=== PATIENT | female | born 1940 | race Caucasian/White ===

== ENCOUNTER → 2018-07-01 | Outpatient (CLI) | payer MEDICARE, OTHER ==
[~2018-07-01] MED LIST: CATHETER FLUSH 10 ML SYR IV PRN; REGADENOSON 0.4 MG/5 ML SYR (LEXISCAN) IV ONE
[2018-07-01 09:11] VITALS: BP 164/69
[2018-07-01 09:12] VITALS: BP 161/75
--- NOTE | 2018-07-02 12:46 | STRESS TEST ---
DATE OF SERVICE: 07/01/2018 LEXISCAN MYOVIEW STRESS TEST Baseline heart rate is 52. Baseline blood pressure 164/69. Baseline EKG is sinus rhythm with nondiagnostic changes with T-wave inversion. In summary, the patient was injected with 7.84 mCi of technetium-99 Myoview and the resting images were obtained. Then, the patient received 0.4 mg of Lexiscan followed by 22.1 mCi of technetium-99 Myoview. Throughout the test, there were no EKG changes. The resting and stress images were reviewed and compared in the short axis, horizontal long axis, and vertical long axis views. Review of the images showed mild reversible ischemia involving the mid to apical inferior wall with diaphragmatic attenuation. SSS is 5, SDS 4, TID value 0.92. On the gated images, the left ventricle appeared to be normal size with normal contractility. Calculated ejection fraction 54%. CONCLUSION: 1. The patient tolerated Lexiscan well. 2. Diaphragmatic attenuation with mild ischemia involving the mid to apical inferior wall and inferior lateral wall and inferoseptum. 3. Normal left ventricular size with normal contractility. Calculated ejection fraction 54%. Job ID: [id number] DocumentID: [id number] Dictated Date: 07/02/2018 12:28:05 Order Clerk Date: 07/02/2018 12:45:55 Dictated By: SARAH PAK MD
== END ==
LOC: CARD 07:22
PROVIDERS: ATTEND Internal Medicine Cardiovascular Disease
DX: I10 Essential (primary) hypertension (principal); E78.2 Mixed hyperlipidemia; I63.9 Cerebral infarction, unspecified; Z82.49 Family history of ischemic heart disease and other diseases of the circulatory system
CPT/HCPCS: 78452; 93017; 93306

== ENCOUNTER 2018-07-10 08:47 | Day surgery (SDC) | payer MEDICARE ==
[2018-07-10] VITALS (11 sets, daily range): BP systolic 129–210; BP diastolic 64–89
[~2018-07-10] VITALS: Ht 160 cm; Wt 62.1 kg
[2018-07-10] MEDS ORDERED: NS IV 1000 ML 1,000 ML ONE (09:06)
[2018-07-10] MEDS ORDERED: HEParin (CATH LAB) 2,000 ML IV ONE (09:06)
[2018-07-10] MEDS ORDERED: NS IV 1000 ML 1,000 ML IV SCH ×2 (09:12→14:28)
[2018-07-10 09:44] LABS: HEMOGLOBIN 12.5 G/DL (11.5-16.0); MEAN PLATELET VOLUME 9.5 FL (7.4-10.4); RED CELL DISTRIBUTION WIDTH 13.7 % (10.0-14.5); WHITE BLOOD COUNT 6.4 10^3/uL (4.3-11.0)
[2018-07-10 10:06] LABS: PROTHROMBIN TIME PATIENT 12.9 SEC (12.2-14.7)
[2018-07-10 10:08] LABS: BILIRUBIN,TOTAL 0.4 MG/DL (0.1-1.0); CALCIUM 9.5 MG/DL (8.5-10.1); CREATININE SERUM 1.03 MG/DL (0.60-1.30); POTASSIUM 3.9 MMOL/L (3.6-5.0); TOTAL PROTEIN 6.4 GM/DL (6.4-8.2)
--- NOTE | 2018-07-10 10:16 | Diagnostic Imaging Report ---
INDICATION: Coronary artery disease FINDINGS: The heart size is within normal limits. There is no failure pattern, effusion or pneumothorax. There is background COPD noted. No free air beneath the diaphragms. IMPRESSION: COPD. No acute cardiopulmonary abnormality. Note is made of unhealed but nonacute appearing distal third right clavicular fracture, correlate with any recent injury or pain at that level. Dictated by: Dictated on workstation # [id number]
[2018-07-10] MEDS ORDERED: ATOR40TA70 PO (10:19)
[2018-07-10] MEDS ORDERED: LISI-552 PO (10:19)
[2018-07-10] MEDS ORDERED: MULT1TAB69 PO (10:19)
[2018-07-10] MEDS ORDERED: GUAI1TAB25 PO (10:19)
[2018-07-10] MEDS ORDERED: PANT40TA2 PO (10:19)
[2018-07-10] MEDS ORDERED: ASPI-983 PO (10:19)
[2018-07-10] MEDS ORDERED: BUPR300T43 PO (10:19)
[2018-07-10] MEDS ORDERED: FLEC100T PO (10:19)
[2018-07-10] MEDS ORDERED: ESTR0.5T3 PO (10:19)
[2018-07-10] MEDS ORDERED: CETI10TA20 PO (10:19)
[2018-07-10] MEDS ORDERED: LEVO100T7 PO (10:19)
[2018-07-10] MEDS ORDERED: NF-NACL1GT PO (10:19)
[2018-07-10] MEDS ORDERED: HYDR-3812 PO (10:34)
[2018-07-10] MEDS ORDERED: ZOLP5TAB7 PO (10:58)
[2018-07-10] MEDS ORDERED: CALC500T7 PO (11:02)
[2018-07-10] MEDS ORDERED: SIME80TA16 PO (11:02)
--- NOTE | 2018-07-10 11:04 | NUR ---
SPOKE WITH THE PATIENT AND FAMILY ABOUT MEDICATIONS. THEY DO NOT HAVE A SPECIFIC LIST OF MEDS BUT DID HAVE A PILL FUR STYLIST WITH AM AND PM MEDS IN IT. I IDENTIFIED THE PILLS IN THE BOX AND UPDATED THE MED LIST WITH THAT. IN ADDITION SHE STATES SHE TAKES ZOLPIDEM, HYDROCODONE, TUMS, AND GAS X NEEDED. THEY STATE THE HCTZ, AMLODIPINE, AND VIIBRYD HAVE BEEN DISCONTINUED. SHE ALSO WAS PRESCRIBED CALCITONIN NASAL SPRAY BUT STATES SHE DOES NOT USE IT.
[2018-07-10] MEDS ORDERED: ENALAPRILAT 2.5 MG/2 ML (VASOTEC) VIAL IV ONE (13:08)
--- NOTE | 2018-07-10 13:23 | Cardiac Procedure Note-CS/ASA ---
Pre-Procedure Note Pre-Op Procedure Note H&P Reviewed The H&P was reviewed, patient examined and no changes noted. Date H&P Reviewed: Jul 10, 2018 Time H&P Reviewed: 13:23 Conscious Sedation Pre-Proced Time 13:23 ASA Score 3 For ASA 3 and 4: Consider anesthesia and medical clearance. Also, for patients with a history of failed moderate sedation consider anesthesia. Airway Lungs Heart ASA score ASA 1: a normal healthy patient ASA 2: a patient with a mild systemic disease (mid diabetes, controlled hypertension, obesity x ASA 3: a patient with a severe systemic disease that limits activity (angina , COPD, prior Myocardial infarction) ASA 4: a patient with an incapacitating disease that is a constant threat to life (CHF, renal failure) ASA 5: a moribund patient not expected to survive 24 hrs. (ruptured aneurysm) ASA 6: a declared brain- patient whose organs are being harvested. For emergent operations, add the letter E after the classification Mallampati Classification Grade 3 Sedation Plan Analgesia, Amnesia, Plan communicated to team members, Discussed options with patient/fam, Discussed risks with patient/fam The patient is an appropriate candidate to undergo the planned procedure, sedation, and anesthesia. The patient immediately re-assessed prior to indication. SARAH PAK MD Jul 10, 2018 13:23
[2018-07-10] MEDS ORDERED: fentaNYL INJECTION 100 MCG/2 ML AMP ONE (13:36)
[2018-07-10] MEDS ORDERED: MIDAZOLAM 5 MG/5 ML (VERSED) VIAL ONE (13:36)
[2018-07-10] MEDS ORDERED: NITRO DRIP 25000 MCG/D5W 250 ML IV ONE (14:12)
[2018-07-10] MEDS ORDERED: PATIENT MAY USE OWN MEDS, ALL PO SCH (14:30)
[2018-07-10] MEDS ORDERED: cloNIDine 0.1 MG (CATAPRES) TAB PO ONE (14:30)
--- NOTE | 2018-07-10 14:36 | Cardiac Cath Report ---
Cardiac Cath Report Physician (s)/Motor Mechanic (s) Physician SARAH PAK MD Pre-Procedure Diagnosis Pre-Procedure Diagnosis: coronary artery disease, severe hypertension Post-Procedure Note Procedure Start Date: Jul 10, 2018 Name of Procedure: Left heart catheterization Aortic arch angiogram Selective bilateral renal angiogram Findings/Procedure Note PROCEDURE NOTE: 77 years old lady with history of malignant hypertension, had abnormal stress test with ischemia at the inferior wall, was scheduled for cardiac catheterization, noted to have severe hypertension requiring multiple IV and intra-arterial medication during the procedure, I decided to evaluate her renal artery and aortic arch during the procedure. After explaining the procedure to the patient, all pros and cons were explained , all questions were answered. The patient signed the consent and then she was placed on the cardiac catheterization laboratory. Groin was prepped SL fashion local anesthesia was used. Sheath placed in the right femoral artery. Lashon right and left catheter were used to access the coronary system. Pigtail was used to access the left ventricular cavity. Left ventriculogram was done Aortic arch angiogram was done Lashon right catheter was used to access selectively the right and left renal artery and selective renal angiogram was done, patient was given intra-arterial nitroglycerin, IV enalapril and oral clonidine At the end of the procedure the sheath was removed. Closure device was used. FINDINGS: Hemodynamics LV 186/26, end-diastolic pressure of 26 Aorta 184/64 mean of 105 ANATOMY: Left Main is free of obstructive disease Left Anterior Descending has mild disease nonobstructive disease Left Circumflex is codominant with mild disease distally nonobstructive disease Right Coronory Artery is codominant with occluded right PDA distally, fairly small artery not amendable to intervention LV Gram was not done, pressure was measured Aorta evaluation done with aortic arch and gram which showed severe hypertensive changes in the aorta, calcification in the aortic arch, origin of the innominate artery, left carotid and left subclavian artery showed atherosclerotic plaque with nonobstructive disease, no dissection or aneurysm Selective right renal angiogram showed no significant obstructive disease Selective left renal angiogram showed no obstructive disease CONCLUSION: 1. Occluded distal right PDA that is very small artery, not amendable to intervention 2. Mild coronary artery disease, nonobstructive disease otherwise, codominant circumflex artery 3. Severe hypertensive changes in the aortic arch and great vessels of the neck 4. Normal bilateral renal arteries DISCUSSION AND RECOMMENDATION: continue to maximize medical therapy no intervention is needed Anesthesia Type: Conscious Sedation Estimated blood loss (mL): 15 ml Contrast Amount: 63 ml Total Radiation Dose: 414 mGy Post-Procedure Diagnosis Post-operative diagnosis: Coronary artery disease Malignant hypertension Hyperlipidemia Chest SARAH PAK MD Jul 10, 2018 14:35
[2018-07-10] MEDS ORDERED: AMLO5TAB9 PO (14:39)
--- NOTE | 2018-07-10 14:40 | Discharge Inst-Post CATH ---
Discharge Inst-CATH/EP Post Cardiac Cath/EP D/C Inst Follow Up/Plan Appointment with Dr. Barros's office in 2 weeks CARDIAC CATH DISCHARGE INSTRUCTIONS *Hold Metformin for 48 hours post heart cath. ACTIVITY * Go Home directly and rest. * Limit activity of the leg (or wrist if it was used) for 7 days including aerobics, swimming, jogging, bicycling, etc. * Restrict stair-climbing for 7 days if possible, if not, climb up with your non -cath leg, then bring together on the same step. * Avoid lifting, pushing, pulling or excessive movement of the affected extremity for 7 days. * Customary sexual activity may be resumed after 2 days-use caution not to use a position that strains or causes pain to the affected extremity. * No driving for 24 hours. * NO SMOKING. * Avoid straining for bowel movements for 7 days. * Gentle walking on level ground is allowed. * Returning to work will depend on the type of procedure and the results. Your doctor will discuss this with you. CALL YOUR DOCTOR FOR ANY OF THE FOLLOWING: *If bleeding from the puncture site occurs- Apply gentle pressure to site with clean cloth and call your doctor or EMS. * If a knot or lump forms under the skin, increases in size, or causes pain. * If bruising appears to be worsening or moving further down your leg instead of disappearing. * Temperature above 101 F. CARE OF YOUR GROIN INCISION; * Bruising or purple discoloration of the skin near the puncture site is common. * You may shower only, no bathtub bathing for 5 days. Be careful to avoid slipping as your leg may feel stiff. * If a closure device was used on your femoral artery, please see the attached guide regarding care of the device and your leg. * Leave the dressing on, until removed by office staff. CARE OF YOUR WRIST INCISION; * Bruising or purple discoloration of the skin near the puncture site is common. * You may shower. * DO NOT submerge wrist. * Leave dressing on, until removed by office staff.. SARAH BARROS MD Jul 10, 2018 14:39
[2018-07-10] MEDS ORDERED: amLODIPine 5 MG (NORVASC) TAB PO NR (15:25)
[2018-07-10] MEDS ORDERED: lisINopril 20 MG (PRINIVIL) TABLET PO NR (15:25)
--- NOTE | 2018-07-10 15:45 | NUR ---
TERRELL SKIN ASSESSMENT BASED ON POST HEART CATH/POST OP ORDERS. PATIENT IS ON BEDREST FOR 4 HOURS POST OP.
== END 2018-07-10 19:20 | disposition home or self-care (01) ==
LOC: CATH 08:47
PROVIDERS: ATTEND Internal Medicine Cardiovascular Disease
DX: I25.10 Atherosclerotic heart disease of native coronary artery without angina pectoris (principal); I10 Essential (primary) hypertension; E78.2 Mixed hyperlipidemia; Z86.73 Personal history of transient ischemic attack (TIA), and cerebral infarction without residual deficits; F32.9 Major depressive disorder, single episode, unspecified; E03.9 Hypothyroidism, unspecified; Z79.82 Long term (current) use of aspirin; Z79.899 Other long term (current) drug therapy; I65.23 Occlusion and stenosis of bilateral carotid arteries; J45.909 Unspecified asthma, uncomplicated; Z80.9 Family history of malignant neoplasm, unspecified
CPT/HCPCS: 36221; 36252; 36415; 71045; 80053; 80061; 85027; 85610; 85730; 87081; 93458

== ENCOUNTER 2018-08-09 08:33 | Outpatient (RCR) | payer MEDICARE ==
[~2018-08-09 08:33] MED LIST changes: +AMLO5TAB9 PO; +ASPI-983 PO; +ATOR40TA70 PO; +BUPR300T43 PO; +CALC500T7 PO; -CATHETER FLUSH 10 ML SYR IV PRN; +CETI10TA20 PO; +ESTR0.5T3 PO; +FLEC100T PO; +GUAI1TAB25 PO; +HYDR-3812 PO; +LEVO100T7 PO; +LISI-552 PO; +MULT1TAB69 PO; +NF-NACL1GT PO; +PANT40TA2 PO; -REGADENOSON 0.4 MG/5 ML SYR (LEXISCAN) IV ONE; +SIME80TA16 PO; +ZOLP5TAB7 PO
== END 2018-11-07 | disposition home or self-care (01) ==
LOC: CARD 08:33
PROVIDERS: ATTEND Internal Medicine Cardiovascular Disease
DX: I25.10 Atherosclerotic heart disease of native coronary artery without angina pectoris (principal); I10 Essential (primary) hypertension; E78.2 Mixed hyperlipidemia; R07.9 Chest pain, unspecified; I63.9 Cerebral infarction, unspecified
CPT/HCPCS: 93225; 93226

== ENCOUNTER → 2018-09-04 | Day surgery (SDC) | payer MEDICARE ==
[~2018-09-04] VITALS: Ht 160 cm; Wt 62.1 kg
[~2018-09-04] MED LIST changes: +LIDOCAINE 1% INJ 20 ML 20 ML VIAL ONE
[2018-09-04 08:44] VITALS: BP 172/82
--- NOTE | 2018-09-04 10:03 | Implantation of Loop Monitor ---
Implant of Loop Monitior IMPLANTATION OF LOOP MONITOR REPORT DATE OF PROCEDURE: 09/04/18 PREOP DIAGNOSIS: paroxysmal atrial fibrillation POSTOP DIAGNOSIS: paroxysmal atrial fibrillation PROCEDURE DETAILS: The patient is a 78 female with history of paroxysmal atrial fibrillation requiring long-term surveillance. Therefore implantable loop recorder was discussed and agreed with the patient. Informed consent was taken. All risks and complications were discussed at length. The patient was draped and prepped in the usual sterile fashion. Local anesthesia was lidocaine, which was given in the substernal area close to the 4th intercostal space. Loop monitor [email or web address] serial # [id number] was implanted according to the protocol. Steri- Strips were placed at the end of the procedure. There were no complications and the patient tolerated the procedure well. The device was interrogated with a voltage of. ANESTHESIA: Local anesthesia with lidocaine. COMPLICATIONS: None CONTRAST/FLUOROSCOPY: None CONCLUSION: Successful loop recorder implantation with no complication FINAL DIAGNOSIS: Paroxysmal atrial fibrillation Palpitation SARAH PAK MD Sep 04, 2018 10:03
== END | disposition home or self-care (01) ==
LOC: CATH 08:29
PROVIDERS: ATTEND Internal Medicine Cardiovascular Disease
DX: I48.0 Paroxysmal atrial fibrillation (principal); E78.2 Mixed hyperlipidemia; Z86.73 Personal history of transient ischemic attack (TIA), and cerebral infarction without residual deficits; Z82.49 Family history of ischemic heart disease and other diseases of the circulatory system; F32.9 Major depressive disorder, single episode, unspecified; E03.9 Hypothyroidism, unspecified; I08.3 Combined rheumatic disorders of mitral, aortic and tricuspid valves; I65.23 Occlusion and stenosis of bilateral carotid arteries; J45.909 Unspecified asthma, uncomplicated; I25.10 Atherosclerotic heart disease of native coronary artery without angina pectoris; Z79.82 Long term (current) use of aspirin; Z79.899 Other long term (current) drug therapy; Z88.0 Allergy status to penicillin; Z88.5 Allergy status to narcotic agent
CPT/HCPCS: 33285

== ENCOUNTER → 2019-07-04 | Outpatient (CLI) | payer MEDICARE ==
[~2019-07-04] MED LIST changes: -LIDOCAINE 1% INJ 20 ML 20 ML VIAL ONE
== END ==
LOC: CARD 10:38
PROVIDERS: ATTEND Internal Medicine Cardiovascular Disease
DX: I10 Essential (primary) hypertension (principal); E78.2 Mixed hyperlipidemia; I25.10 Atherosclerotic heart disease of native coronary artery without angina pectoris; I48.0 Paroxysmal atrial fibrillation; I08.0 Rheumatic disorders of both mitral and aortic valves
CPT/HCPCS: 93306

== ENCOUNTER 2019-09-25 21:22 | Observation (INO) | payer MEDICARE ==
[~2019-09-25] VITALS: Ht 170.2 cm; Wt 70.2 kg
[~2019-09-25 21:22] MED LIST changes: +ACHD5005 PO; -CETI10TA20 PO; +CETI10TA21 PO; -HYDR-3812 PO
--- NOTE | 2019-09-25 21:31 | NUR ---
RECEIVED REPORT FROM LIAM STILES FROM [facility].
--- NOTE | 2019-09-25 22:41 | NUR ---
NEIL ARTHUR admitted to room CU8-1, with an admitting diagnosis of CHEST PAIN, on 09/25/19 from via [facility], accompanied by EMS STAFF. NEIL LEON introduced to surroundings, call light, bed controls, phone, TV, temperature control, lights, meal times, smoking policy, visitor policy, side rail policy, bathrooms and showers. Patient Rights given to patient in the handbook.NEIL LEON verbalizes understanding that [facility] is not responsible for the loss or damage to any personal effects or valuables that are kept in the patients possession during their hospitalization. Patient informed about the Rapid Response Team and its purpose.
--- OUTSIDE RECORDS SUMMARY | 2019-09-25 22:59 | XMS REPORT | Continuity of Care Document ---
Author Organization Unknown Address Unknown Phone Unavailable Allergies Active Description Code Type Severity Reaction Onset Reported/Identified Relationship to Patient Clinical Status Yes No Allergy Information Available [id number] Drug Allergy Unknown N/A 019 Yes morphine [id number] Drug Allergy Severe N/A 07/10/2018 Yes Penicillins [id number] Drug Aller gy Severe N/A 07/10/2018 Medications There is no data. Problems Date Dx Coded Attending Type Code Diagnosis Diagnosed By 07/02/2018 SARAH PAK MD, Ot E78. 2 MIXED HYPERLIPIDEMIA 07/02/2018 SARAH PAK MD Ot I10 ESSENTIAL (PRIMARY) HYPERTENSION 07/02/2018 SARAH PAK MD Ot I63. 9 CEREBRAL INFARCTION, UNSPECIFIED 07/02/2018 SARAH PAK MD Ot Z82. 49 FAMILY HX OF ISCHEM HEART DIS AND OTH DI 07/07/2018 SARAH PAK MD Ot E78. 2 MIXED HYPERLIPIDEMIA 07/07/2018 SARAH PAK MD Ot I10 ESSENTIAL (PRIMARY) HYPERTENSION 07/07/2018 SARAH PAK MD Ot I63. 9 CEREBRAL INFARCTION, UNSPECIFIED 07/07/2018 SARAH PAK MD Ot Z82. 49 FAMILY HX OF ISCHEM HEART DIS AND OTH DI 07/10/2018 SARAH PAK MD Ot E03. 9 HYPOTHYROIDISM, UNSPECIFIED 07/10/2018 SARAH PAK MD Ot E78. 2 MIXED HYPERLIPIDEMIA 07/10/2018 ASRAH PAK MD Ot F32. 9 MAJOR DEPRESSIVE DISORDER, SINGLE EPISOD 07/10/2018 SARAH PAK MD Ot I10 ESSENTIAL (PRIMARY) HYPERTENSION 07/10/2018 SARAH PAK MD Ot I25. 10 ATHSCL HEART DISEASE OF [place] CORONARY 07/10/2018 SARAH PAK MD Ot I65. 23 OCCLUSION AND STENOSIS OF BILATERAL [place] 07/10/2018 SARAH PAK MD Ot J45.909 UNSPECIFIED ASTHMA, UNCOMPLICATED 07/10/2018 SARAH PAK MD Ot Z79. 82 CLAMSHELL OPERATOR (CURRENT) USE OF ASPIRIN 07/10/2018 SARAH PAK MD Ot Z79.899 OTHER CLAMSHELL OPERATOR (CURRENT) DRUG THERAPY 07/10/2018 SARAH PAK MD Ot Z80. 9 FAMILY HISTORY OF MALIGNANT NEOPLASM, UN 07/10/2018 SARAH PAK MD Ot Z86. 73 PRSNL HX OF TIA (TIA), AND CEREB INFRC W 07/11/2018 SARAH PAK MD Ot E03. 9 HYPOTHYROIDISM, UNSPECIFIED 07/11/2018 SARAH PAK MD Ot E78. 2 MIXED HYPERLIPIDEMIA 07/11/2018 SARAH PAK MD Ot F32. 9 MAJOR DEPRESSIVE DISORDER, SINGLE EPISOD 07/11/2018 SARAH PAK MD Ot I10 ESSENTIAL (PRIMARY) HYPERTENSION 07/11/2018 SARAH PAK MD Ot I25. 10 ATHSCL HEART DISEASE OF [place] CORONARY 07/11/2018 SARAH PAK MD Ot I65. 23 OCCLUSION AND STENOSIS OF BILATERAL [place] 07/11/2018 SARAH PAK MD Ot J45.909 UNSPECIFIED ASTHMA, UNCOMPLICATED 07/11/2018 SARAH PAK MD Ot Z79. 82 CLAMSHELL OPERATOR (CURRENT) USE OF ASPIRIN 07/11/2018 SARAH PAK MD Ot Z79.899 OTHER CLAMSHELL OPERATOR (CURRENT) DRUG THERAPY 07/11/2018 SARAH PAK MD Ot Z80. 9 FAMILY HISTORY OF MALIGNANT NEOPLASM, UN 07/11/2018 SARAH PAK MD Ot Z86. 73 PRSNL HX OF TIA (TIA), AND CEREB INFRC W 09/10/2018 SARAH PAK MD Ot I48. 0 PAROXYSMAL ATRIAL FIBRILLATION 09/10/2018 SARAH PAK MD Ot I48. 0 PAROXYSMAL ATRIAL FIBRILLATION 09/10/2018 SARAH PAK MD Ot E03. 9 HYPOTHYROIDISM, UNSPECIFIED 09/10/2018 SARAH PAK MD Ot E78. 2 MIXED HYPERLIPIDEMIA 09/10/2018 SARAH PAK MD Ot F32. 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 10 ATHSCL HEART DISEASE OF [place] CORONARY 09/10/2018 SARAH PAK MD Ot I48. 0 PAROXYSMAL ATRIAL FIBRILLATION 09/10/2018 SARAH PAK MD Ot I65. 23 OCCLUSION AND STENOSIS OF BILATERAL [place] 09/10/2018 SARAH PAK MD Ot J45.909 UNSPECIFIED ASTHMA, UNCOMPLICATED 09/10/2018 SARAH PAK MD Ot Z79. 82 CLAMSHELL OPERATOR (CURRENT) USE OF ASPIRIN 09/10/2018 SARAH PAK MD Ot Z79.899 OTHER RETIREMENT (CURRENT) DRUG THERAPY 09/10/2018 SARAH PAK MD Ot Z82. 49 FAMILY HX OF ISCHEM HEART DIS AND OTH DI 09/10/2018 SARAH PAK MD Ot Z86. 73 PRSNL HX OF TIA (TIA), AND CEREB INFRC W 09/10/2018 SARAH PAK MD Ot Z88. 0 ALLERGY STATUS TO PENICILLIN 09/10/2018 SARAH PAK MD Ot Z88. 5 ALLERGY STATUS TO NARCOTIC AGENT STATUS 09/24/2018 SARAH PAK MD Ot E03. 9 HYPOTHYROIDISM, UNSPECIFIED 09/24/2018 SARAH PAK MD Ot E78. 2 MIXED HYPERLIPIDEMIA 09/24/2018 SARAH PAK MD Ot F32. 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 10 ATHSCL HEART DISEASE OF [place] CORONARY 09/24/2018 SARAH PAK MD Ot I48. 0 PAROXYSMAL ATRIAL FIBRILLATION 09/24/2018 SARAH PAK MD Ot I65. 23 OCCLUSION AND STENOSIS OF BILATERAL [place] 09/24/2018 SARAH PAK MD Ot J45.909 UNSPECIFIED ASTHMA, UNCOMPLICATED 09/24/2018 SARAH PAK MD Ot Z79. 82 RETIREMENT (CURRENT) USE OF ASPIRIN 09/24/2018 SARAH PAK MD Ot Z79.899 OTHER RETIREMENT (CURRENT) DRUG THERAPY 09/24/2018 SARAH PAK MD Ot Z82. 49 FAMILY HX OF ISCHEM HEART DIS AND OTH DI 09/24/2018 SARAH PAK MD Ot Z86. 73 PRSNL HX OF TIA (TIA), AND CEREB INFRC W 09/24/2018 SARAH PAK MD Ot Z88. 0 ALLERGY STATUS TO PENICILLIN 09/24/2018 SARAH PAK MD Ot Z88. 5 ALLERGY STATUS TO NARCOTIC AGENT STATUS 11/07/2018 SARAH PAK MD Ot E78. 2 MIXED HYPERLIPIDEMIA 11/07/2018 SARAH PAK MD Ot I10 ESSENTIAL (PRIMARY) HYPERTENSION 11/07/2018 SARAH PAK MD Ot I25. 10 ATHSCL HEART DISEASE OF [place] CORONARY 11/07/2018 SARAH PAK MD Ot I63. 9 CEREBRAL INFARCTION, UNSPECIFIED 11/07/2018 SARAH PAK MD Ot R07. 9 CHEST PAIN, UNSPECIFIED 11/13/2018 SARAH PAK MD Ot E78. 2 MIXED HYPERLIPIDEMIA 11/13/2018 SARAH PAK MD Ot I10 ESSENTIAL (PRIMARY) HYPERTENSION 11/13/2018 SARAH PAK MD Ot I25. 10 ATHSCL HEART DISEASE OF [place] CORONARY 11/13/2018 SARAH PAK MD Ot I63. 9 CEREBRAL INFARCTION, UNSPECIFIED 11/13/2018 SARAH PAK MD Ot R07. 9 CHEST PAIN, UNSPECIFIED 06/30/2019 SARAH PAK MD Ot E78. 2 MIXED HYPERLIPIDEMIA 06/30/2019 SARAH PAK MD Ot I10 ESSENTIAL (PRIMARY) HYPERTENSION 06/30/2019 SARAH PAK MD Ot I63. 9 CEREBRAL INFARCTION, UNSPECIFIED 06/30/2019 SARAH PAK MD Ot Z82. 49 FAMILY HX OF ISCHEM HEART DIS AND OTH DI 06/30/2019 SARAH PAK MD Ot E03. 9 HYPOTHYROIDISM, UNSPECIFIED 06/30/2019 SARAH PAK MD Ot E78. 2 MIXED HYPERLIPIDEMIA 06/30/2019 SARAH PAK MD Ot F32. 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 10 ATHSCL HEART DISEASE OF [place] CORONARY 06/30/2019 SARAH PAK MD Ot I48. 0 PAROXYSMAL ATRIAL FIBRILLATION 06/30/2019 SARAH PAK MD Ot I65. 23 OCCLUSION AND STENOSIS OF BILATERAL [place] 06/30/2019 SARAH PAK MD Ot J45.909 UNSPECIFIED ASTHMA, UNCOMPLICATED 06/30/2019 SARAH PAK MD Ot Z79. 82 CLAMSHELL OPERATOR (CURRENT) USE OF ASPIRIN 06/30/2019 SARAH PAK MD Ot Z79.899 OTHER CLAMSHELL OPERATOR (CURRENT) DRUG THERAPY 06/30/2019 SARAH PAK MD Ot Z82. 49 FAMILY HX OF ISCHEM HEART DIS AND OTH DI 06/30/2019 SARAH PAK MD Ot Z86. 73 PRSNL HX OF TIA (TIA), AND CEREB INFRC W 06/30/2019 SARAH PAK MD Ot Z88. 0 ALLERGY STATUS TO PENICILLIN 06/30/2019 SARAH PAK MD Ot Z88. 5 ALLERGY STATUS TO NARCOTIC AGENT STATUS 06/30/2019 SARAH PAK MD Ot E78. 2 MIXED HYPERLIPIDEMIA 06/30/2019 SARAH PAK MD Ot I10 ESSENTIAL (PRIMARY) HYPERTENSION 06/30/2019 SARAH PAK MD Ot I25. 10 ATHSCL HEART DISEASE OF [place] CORONARY 06/30/2019 SARAH PAK MD Ot I63. 9 CEREBRAL INFARCTION, UNSPECIFIED 06/30/2019 SARAH PAK MD Ot R07. 9 CHEST PAIN, UNSPECIFIED 07/08/2019 SARAH PAK MD Ot E78. 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 10 ATHSCL HEART DISEASE OF [place] CORONARY 07/08/2019 SARAH PAK MD Ot I48. 0 PAROXYSMAL ATRIAL FIBRILLATION 07/29/2019 SARAH PAK MD Ot E78. 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 10 ATHSCL HEART DISEASE OF [place] CORONARY 07/29/2019 SARAH PAK MD, Ot I48. 0 PAROXYSMAL ATRIAL FIBRILLATION Procedures There is no data. Results Test Result Range Automated blood complete blood count (he mogram) panel - 07/10/18 09:30 Blood leukocytes automated count (number/volume) 6.4 10*3/uL 4.3-11.0 Blood erythrocytes automated count (number/volume) 4.50 10*6/uL 4.35-5.85 Venous blood hemoglobin measurement (mass/volume) 12.5 g/dL 11.5-16.0 Blood hematocrit (volume fraction) 38 % 35-52 Automated erythrocyte mean corpuscular volume 85 [ foz_us] 80-99 Automated erythrocyte mean corpuscular h emoglobin (mass per erythrocyte) 28 pg 25-34 Automated erythrocyte mean corpuscular h emoglobin concentration measurement (mass/volume) 33 g/dL 32-36 Automated erythrocyte distribution width ratio 13. 7 % 10.0- 14.5 Automated blood platelet count (count/volume) 283 10*3/uL 130-400 Automated blood platelet mean volume measurement 9.5 [foz_us] 7.4-10.4 PT panel in platelet poor plasma by coag ulation assay - 07/10/18 09:30 Prothrombin time (PT) in platelet poor plasma by coagu lation assay 12.9 s 12.2-14.7 INR in platelet poor plasma or blood by coagulation as say 1.0 0.8-1.4 Activated partial thromboplastin time (a PTT) in platelet poor plasma bycoagulation assay - 07/10/18 09:30 Activated partial thromboplastin time (a PTT) in platelet poor plasma bycoagulation assay 34 s 24-35 Comprehensive metabolic panel - 07/10/18 09:30 Serum or plasma sodium measurement (moles/volume) 138 mmol/L 135-145 Serum or plasma potassium measurement (moles/volume) 3.9 mmol/L 3.6-5.0 Serum or plasma chloride measurement (moles/volume) 103 mmol/L 98-107 Carbon dioxide 27 mmol/L 21-32 Serum or plasma anion gap determination (moles/volume) 8 mmol/L 5-14 Serum or plasma urea nitrogen measurement (mass/volume ) 16 mg/dL 7-18 Serum or plasma creatinine measurement (mass/volume) 1.03 mg/dL 0.60-1.30 Serum or plasma urea nitrogen/creatinine mass ratio 16 NRG Serum or plasma creatinine measurement w ith calculation of estimated glomerular filtration rate 52 NRG Serum or plasma glucose measurement (mass/volume) 78 mg/dL 70-105 Serum or plasma calcium measurement (mass/volume) 9.5 mg/dL 8.5-10.1 Serum or plasma total bilirubin measurement (mass/volu me) 0.4 mg/dL 0.1-1.0 Serum or plasma alkaline phosphatase chayito surement (enzymatic activity/volume) 85 U/L 40-136 Serum or plasma aspartate aminotransfera se measurement (enzymatic activity/volume) 22 U/L 5-34 Serum or plasma alanine aminotransferase measurement (enzymatic activity/volume) 14 U/L 0-55 Serum or plasma protein measurement (mass/volume) 6.4 g/dL 6.4-8.2 Serum or plasma albumin measurement (mass/volume) 4.0 g/dL 3.2-4.5 CALCIUM CORRECTED 9.5 mg/dL 8.5-10.1 Lipid 1996 panel - 07/10/18 09:30 Serum or plasma triglyceride measurement (mass/volume) 70 mg/dL <150 Serum or plasma cholesterol measurement (mass/volume) 180 mg/dL < 200 Serum or plasma cholesterol in HDL measurement (mass/v olume) 86 mg/dL 40-60 Cholesterol in LDL [mass/volume] in serum or plasma by direct assay 73 mg/dL 1-129 Serum or plasma cholesterol in VLDL measurement (mass/ volume) 14 mg/dL 5-40 Methicillin resistant Staphylococcus aur eus (MRSA) screening culture - 07/10/18 09:30 Methicillin resistant Staphylococcus aureus (MRSA) scr eening culture NEG NRG Encounters ACCT No. Visit Date/Time Discharge Status Pt. Type Provider Facility Loc./Unit Complaint [id number] 07/04/2019 10:38:00 020 23:59:59 CLS Outpatient SARAH PAK MD Via [facility] CARD HTN,HYPERLIPIDEMIA,CAD [id number] 11/08/2018 00:11:00 019 23:59:59 CLS Preadmit SARAH PAK MD [facility] CARD CVA, CHEST PAIN, HTN [id number] 08/09/2018 08:33:00 00:01:00 DIS Outpatient SARAH PAK MD [facility] CARD CVA, CHEST PAIN, HTN [id number] 09/04/2018 08:29:00 23:59:59 CLS Outpatient SARAH PAK MD [facility] PAT [id number] 07/10/2018 08:47:00 19:20:00 DIS Outpatient SARAH PAK MD [facility] ABN STRESS TEST [id number] 07/01/2018 07:22:00 23:59:59 CLS Outpatient SARAH PKA MD [facility] HTN
[2019-09-25 23:00] VITALS: BP 180/94
[2019-09-25 23:15] VITALS: BP 171/80
[2019-09-25 23:30] VITALS: BP 167/82
[2019-09-25] MEDS ORDERED: NITROGLYCERIN 0.4 MG SL TABS BTL 25'S SL PRN (23:30)
[2019-09-25] MEDS ORDERED: PATIENT MAY USE OWN MEDS, ALL PO SCH (23:30)
[2019-09-25] MEDS: NS IV 1000 ML 1,000 ML IV SCH (23:35)
[2019-09-25 23:45] VITALS: BP 149/72
[2019-09-26] VITALS (17 sets, daily range): BP systolic 112–195; BP diastolic 57–90
[2019-09-26 03:32] LABS: BASOPHILS % (AUTO) 0 % (0-10); EOSINOPHILS # (AUTO) 0.2 10^3/uL (0.0-0.3); EOSINOPHILS % (AUTO) 2 % (0-10); HEMATOCRIT 37 % (35-52); HEMOGLOBIN 11.9 G/DL (11.5-16.0); LYMPHOCYTES # (AUTO) 2.3 X 10^3 (1.0-4.0); LYMPHOCYTES % (AUTO) 33 % (12-44); MEAN CORPUSCULAR HEMOGLOBIN 28 PG (25-34); MEAN CORPUSCULAR HGB CONC 32 G/DL (32-36); MEAN CORPUSCULAR VOLUME 86 FL (80-99); MEAN PLATELET VOLUME 10.8 FL (7.4-10.4); MONOCYTES # (AUTO) 0.8 X 10^3 (0.0-1.0); MONOCYTES % (AUTO) 12 % (0-12); NEUTROPHILS # (AUTO) 3.7 X 10^3 (1.8-7.8); NEUTROPHILS % (AUTO) 53 % (42-75); PLATELET COUNT 201 10^3/uL (130-400); RED CELL DISTRIBUTION WIDTH 13.4 % (10.0-14.5)
[2019-09-26 04:09] LABS: INR 1.1 (0.8-1.4); PROTHROMBIN TIME PATIENT 14.5 SEC (12.2-14.7)
--- NOTE | 2019-09-26 08:54 | History & Physical-Hospitalist ---
History of Present Illness HPI/Chief Complaint Pt is an 79yoCF with a PMH of CAD, a-fib, HTn, hypothyroidism who presented to the ER duet chest pressure. She states she has mild chest pressure regularly that goes away with rest and is worse with exertion. She states last night she developed worsening chest pressure and sharp central chest pain. This was associated with SOB, nausea, and diaphoresis. It did not radiate any where. She states she felt similar when she had an [place] in the past. She denies any fever, chills, or cough. Her pain improved with rest and she has no pain currently. Troponin at outside facility was 0.066 so she was transferred her for cardiology evaluation. Troponin this morning was 0.038. A third troponin is pending. Her EKG revealed a LBBB which per their old records is not new. She states that yesterday she noticed her heart rate was 110 as well. Source: patient Date Seen 09/26/19 Time Seen by a Provider: 08:15 Attending Physician Eloise Bhat MD PCP No,Local Physician Referring Physician Date of Admission Sep 25, 2019 at 22:41 Home Medications & Allergies Home Medications Reviewed patient Home Medication Reconciliation performed by pharmacy medication reconciliations radio technician and/or nursing. Patients Allergies have been reviewed. Allergies Allergies Coded Allergies Penicillins (Verified Allergy, Severe, 07/10/18) SEIZURE morphine (Verified Allergy, Severe, 07/10/18) SEIZURE Past Izjwlwc-Ehglpp-Qccndj Hx Past Med/Social Hx: Reviewed Nursing Past Med/Soc Hx Patient Social History Marrital Status: Employed/Student: retired Alcohol Use: Denies Use Recreational Drug Use: No Smoking Status: Never a Smoker Type Used: Cigarettes Physical Abuse Screen: No Sexual Abuse: No Recent Foreign Travel: No Contact w/other who traveled: No Recent Hopitalizations: No (STROKE) Recent Infectious Disease Expo: No Immunizations Up To Date Pediatric: No Date of Pneumonia Vaccine: Sep 25, 2014 Date of Influenza Vaccine: Feb 02, 2018 Seasonal Allergies Seasonal Allergies: No Past Medical History Surgeries: Appendectomy, Gallbladder, Hysterectomy, Oophorectomy Currently Using CPAP: No Currently Using BIPAP: No Cardiac: Atrial Fibrillation, Coronary Artery Disease, Heart Attack, Heart Murmur, High Cholesterol, Hypertension, Valvular Heart Disease Neurological: Seizure Disorder, Stroke Sexually Transmitted Disease: No HIV/AIDS: No Female Reproductive Disorders: Denies Hysterectomy Endocrine: Hypothyroidsim Are Your Blood Sugars Over 250: No History of Blood Disorders: No Family History Reviewed Nursing Family Hx Review of Systems Constitutional: No chills; diaphoresis; No fever Respiratory: dyspnea on exertion, short of breath Cardiovascular: see HPI, chest pain; No edema; Hx of Intervention; No syncope Gastrointestinal: No abdominal pain; nausea; No vomiting Genitourinary: no symptoms reported Musculoskeletal: no symptoms reported Skin: no symptoms reported Psychiatric/Neurological: No Symptoms Reported Physical Exam Physical Exam Vital Signs Vital Signs - First Documented 09/25/19 09/25/19 09/25/19 22:41 22:48 23:00 Temp 37.3 Pulse 83 Resp 15 B/P (MAP) 180/94 (122) Pulse Ox 99 O2 Delivery Room Air Capillary Refill : Height, Weight, BMI Height: 5'3.00" Weight: 137lbs. 0.0oz. 62.690664tk; 24.23 BMI Method: General Appearance: No Apparent Distress, WD/WN HEENT: TMs Normal, Moist Mucous Membranes; No Scleral Icterus (L), No Scleral Icterus (R) Respiratory: Lungs Clear, No Respiratory Distress Cardiovascular: Bradycardia Gastrointestinal: Normal Bowel Sounds, Non Tender, Soft Results Results/Procedures Labs Patient resulted labs reviewed. 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 Was originally going to sign out AMA but has agreed to stay for cath. Clinical Quality Measures DVT/VTE Risk/Contraindication: Risk Factor Score Per Nursin RFS Level Per Nursing on Admit: 2=Moderate EMMA CENTENO MD Sep 26, 2019 08:54
[2019-09-26] MEDS: NS IV 1000 ML 1,000 ML IV SCH ×2 (10:11→13:00)
--- NOTE | 2019-09-26 10:58 | NUR ---
CM/SS: Visited with pt as to needing diabetic supplies as per consult Plan: Pt will return home with no identified services needed Summary: Pt reports she was having pressure, not pain in her chest prior to her being admitted to the hospital. Pt reports that she is not diabetic. This worker verifies that the consult is the same pt as checking her wrist band and date of . Pt reports wanting to go home to take care of her handicap daughter. Pt reports having lost her spouse after 62 years of marriage. Pt does also share that her sister lives close and can check on her daughter. She seems to feel ok about that. This worker wished the pt all the best.
--- NOTE | 2019-09-26 11:02 | NUR ---
WHEN I WENT TO SPEAK WITH THE PT I WAS TOLD SHE IS LEAVING AMA- THE AID WAS IN THE ROOM GETTING THE PATIENTS BELONGINGS TOGETHER AND THE PT IS ADAMANT SHE LEAVES THE MED REC DOES NOT SEEM TO BE ACCURATE AT THIS TIME (SHE WAS LAST SEEN 07-10-2018 AND ABDIRAHMAN Tracey SPOKE WITH HER THEN). DUE TO THE REASONS ABOVE I WAS NOT ABLE TO COMPLETE THE MED REC Addendum: 09/26/19 at 1307 by YOSVANY MCLAIN [facility] SON TALKED THE PT INTO STAYING I SPOKE WITH THE PT, CALLED [facility] AND DR. SELLERS OFFICE AND WENT THRU THE EXT MED HISTORY TO COMPLETE THE MED REC THE PT IS UNSURE OF HER MEDICATIONS= SHE USES [facility] FOR MOST OF HER MEDICATIONS. I SPOKE WITH [facility] AND THEY WERE ABLE TO TELL ME ALL THE ACTIVE MEDICATIONS SHE HAD ON FILE. THERE ARE A FEW NEW MEDS THE PT GETS AT MED STATION SO I SPOKE WITH THEM ALSO TO CLARIFY THE REST OF HER MEDICATIONS. ISOSORBIDE MONO ER: THE PT WAS TAKING 30MG BUT IT CURRENTLY TAKING 60MG - THE PT SAID IT WAS RECENTLY CHANGED LOSARTAN: PT HAD BEEN TAKING 25MG HOWEVER SHE IS NOW TAKING 100MG (ALL THE INFORMATION ABOVE IS LISTED IN THE EXT MED HISTORY) OTC MEDS: ASPIRIN SIMETHICONE MTV TUMS Addendum: 09/26/19 at 1313 by YOSVANY MCLAIN CPhT PT ALSO TAKING BENADRYL PRN SLEEP AND VISINE DRY EYE DROPS PRN
--- NOTE | 2019-09-26 11:46 | Consultation-Cardiology ---
HPI-Cardiology Cardiology Consultation: Date of Consultation 09/26/19 Date of Admission Attending Physician Eloise Bhat MD Admitting Physician No,Local Physician Consulting Physician Carlos FORTUNE MD HPI: Time Seen by a Provider: 11:00 Chief Complaint: Chest pressure. This is a 79-year-old lady who sees Dr. Barros as an outpatient. She has history of possible CAD, paroxysmal atrial fibrillation, has an implantable loop recorder, hypertension, hypothyroidism. She presented to her local ER due to recurrent chest pain episodes for 2 days. She describes her chest pain as chest pressure episodes which are worse with exertion and improved with rest. However yesterday she developed further sharp central chest pain therefore decided to go to the ER. Associated shortness of breath, nausea and sweating but no radiation. She denies any other complaints. Troponin was borderline positive in the outside facility. She was not having any further symptoms when I saw her this morning. Review of Systems-Cardiology Review of Systems Constitutional: As described under HPI; No As described under HPI, No no symptoms reported, No chills, No fever, No lightheadedness Eyes: No As described under HPI, No no symptoms reported, No blindness, No blurred vision, No contact lenses, No drainage, No decreased acuity, No foreign body sensation, No pain, No vision change Ears/Nose/Throat: No As described under HPI, No no symptoms reported, No chronic hearing loss, No ear discharge, No ear pain, No nasal drainage, No u lcerations Respiratory: No no symptoms reported; As described under HPI; No As described under HPI, No cough, No orthopnea, No shortness of breath, No SOB with excertion Cardiovascular: No no symptoms reported; As described under HPI; No As described under HPI; chest pain; No edema, No irregular heart rate, No lightheadedness, No palpitations Gastrointestinal: No no symptoms reported, No As described under HPI, No abdomen distended, No abdominal pain, No blood streaked bowels, No constipation, No diarrhea, No nausea, No vomiting, No stool coloration changes Genitourinary: No As described under HPI, No burning, No dysuria, No discharge, No frequency, No flank pain, No hematuria, No urgency : Yes : No Skin: No rash, No skin related problems, No ulcerations Psychiatric/Neurological: No anxiety, No depression, No seizure, No focal weakness, No syncope Hematologic: No bleeding abnormalities FXW-Kkwqev-Oujbcm Hx Patient Social History Marrital Status: Employed/Student: retired Alcohol Use: Denies Use Recreational Drug Use: No Smoking Status: Never a Smoker Type Used: Cigarettes Recent Foreign Travel: No Recent Infectious Disease Expo: No Hospitalization with Isolation: Denies Physical Abuse Screen: No Sexual Abuse: No Immunizations Up To Date Date of Pneumonia Vaccine: Sep 25, 2014 Date of Influenza Vaccine: Feb 02, 2018 Past Medical History PMH As described under Assessment. Allergies and Home Medications Allergies Coded Allergies: Penicillins (Verified Allergy, Severe, 07/10/18) SEIZURE morphine (Verified Allergy, Severe, 07/10/18) SEIZURE Home Medications Amlodipine Besylate 5 Mg Tablet, 5 MG PO DAILY, (Reported) Apixaban 5 Mg Tablet, 5 MG PO BID, (Reported) Aspirin 81 Mg Tablet.dr, 81 MG PO DAILY PRN for CHEST PAIN, (Reported) Atorvastatin Calcium 40 Mg Tablet, 40 MG PO HS, (Reported) Calcium Carbonate 200 Mg Tab.chew, 1 TAB PO TID PRN for INDIGESTION, (Reported) Diphenhydramine HCl 25 Mg Capsule, 25-50 MG PO HS PRN for SLEEP, (Reported) Estradiol 0.5 Mg Tablet, 0.5 MG PO DAILY, (Reported) Hydrochlorothiazide 12.5 Mg Tablet, 12.5 MG PO DAILY, (Reported) Isosorbide Mononitrate 60 Mg Tab, 60 MG PO DAILY, (Reported) Levetiracetam 500 Mg Tablet, 1,000 MG PO BID, (Reported) TAKES 2 (500MG) TABS TWICE DAILY Levothyroxine Sodium 100 Mcg Tablet, 100 MCG PO DAILY, (Reported) Losartan Potassium 100 Mg Tablet, 100 MG PO DAILY, (Reported) Metoprolol Succinate 25 Mg Tab.er.24h, 25 MG PO DAILY, (Reported) Montelukast Sodium 10 Mg Tablet, 10 MG PO HS, (Reported) Multivitamin 1 Each Tablet, 1 TAB PO DAILY, (Reported) Peg 400/Hypromellose/Glycerin 15 Ml Drops, 2 DROPS OU PRN PRN for DRY EYES, (Reported) Sertraline HCl 25 Mg Tablet, 25 MG PO DAILY, (Reported) Simethicone 80 Mg Tab.chew, 80 MG PO TID PRN for GAS, (Reported) Patient Home Medication List Home Medication List Reviewed: Yes Physical Exam-Cardiology Physical Exam Vital Signs/I&O 09/26/19 09/26/19 09/26/19 09/26/19 03:00 03:34 04:00 05:00 Pulse 87 96 93 Resp 15 16 22 B/P (MAP) 147/73 (97) 137/83 (101) 132/81 (98) Pulse Ox 94 92 93 O2 Delivery Room Air Room Air Room Air Room Air 09/26/19 09/26/19 09/26/19 09/26/19 06:00 06:42 08:00 08:00 Temp 36.6 Pulse 61 63 56 Resp 22 24 B/P (MAP) 128/64 (85) 134/57 (82) Pulse Ox 92 91 O2 Delivery Room Air Room Air Room Air 09/26/19 09/26/19 09/26/19 12:00 12:00 12:43 Temp 36.8 Pulse 68 67 Resp 21 B/P (MAP) 168/82 (110) Pulse Ox 97 O2 Delivery Room Air Room Air Capillary Refill : Less Than 3 Seconds Constitutional: appears stated age, AAO x 3; No apparent distress; well- developed, well-nourished HEENT: PERRL; No discharge; hearing is well preserved, oral hygience is good; No ulceration, No xanthelasmas are seen Neck: No carotid bruit; carotid pulses are 2 + bilaterally Respiratory: chest is bilaterally symmetric, lungs clear to auscultation Cardiovascular: regular rate-rhythm, S1 and S2, systolic murmur Gastrointestinal: soft, audible bowel sounds; No spleenomegaly Rectal: deferred Extremities: normal range of motion, non-tender, normal inspection; No clubbing, No cyanosis; no lower extremity edema bilateral; No significant edema Neurologic/Psychiatric: no motor/sensory deficits, alert, normal mood/affect, oriented x 3, power is 5/5 both on sides Skin: normal color; No rash, No ulcerations Data Review Labs Laboratory Tests 09/26/19 03:07: White Blood Count 7.0, Red Blood Count 4.30L, Hemoglobin 11.9, Hematocrit 37, Mean Corpuscular Volume 86, Mean Corpuscular Hemoglobin 28, Mean Corpuscular Hemoglobin Concent 32, Red Cell Distribution Width 13.4, Platelet Count 201, Mean Platelet Volume 10.8H, Neutrophils (%) (Auto) 53, Lymphocytes (%) (Auto) 33, Monocytes (%) (Auto) 12, Eosinophils (%) (Auto) 2, Basophils (%) (Auto) 0, Neutrophils # (Auto) 3.7, Lymphocytes # (Auto) 2.3, Monocytes # (Auto) 0.8, Eosinophils # (Auto) 0.2, Basophils # (Auto) 0.0, Prothrombin Time 14.5, INR Comment 1.1, Troponin I 0.038H 09/26/19 08:05: Troponin I 0.040H, D-Dimer 0.46 ECG Impression ECG Initial ECG Rhythm: Normal Sinus Comment Left bundle branch block. A/P-Cardiology Assessment/Admission Diagnosis Chest pain, borderline troponin, Possible previous history of CAD, Paroxysmal atrial fibrillation, Hypothyroidism, Hypertension Plan Chest pain, borderline troponin, I spoke at length to the patient and recommended coronary angiography. The patient has a disabled daughter at home and initially she wanted to sign out AGAINST MEDICAL ADVICE. She understood the risk of CO and even . However she still wanted to go. However she changed her mind and decided to proceed with coronary angiography. Informed consent was taken which included one to 2 percent risk of complications including even . She accepted the risk and wanted to proceed with the procedure. Possible previous history of CAD, on aspirin. Paroxysmal atrial fibrillation, brief episodes of atrial fibrillation were noted on telemetry. The patient is already on Eliquis. She has an implantable loop recorder which is followed by Dr. Barros. Hypothyroidism, continue outpatient medical therapy. Hypertension, continue outpatient medical therapy. Thank you for your consultation. Please call me if you have any questions. Monique Fortune MD, FACP, FACC, FSCAI, FHRS, CCDS Interventional Cardiology Cardiac Electrophysiology Vascular Medicine and Endovascular Interventions Clinical Quality Measures DVT/VTE Risk/Contraindication: Risk Factor Score Per Nursin RFS Level Per Nursing on Admit: 2=Moderate Carlos FORTUNE MD Sep 26, 2019 11:46
[2019-09-26] MEDS ORDERED: AMLO5TAB9 PO (12:35)
[2019-09-26] MEDS ORDERED: LEVE500T6 PO (12:35)
[2019-09-26] MEDS ORDERED: APIX5TAB PO (12:35)
[2019-09-26] MEDS ORDERED: MONT10TA26 PO (12:35)
[2019-09-26] MEDS ORDERED: ISM60TCR PO (12:35)
[2019-09-26] MEDS ORDERED: SERT25TA5 PO (12:35)
[2019-09-26] MEDS ORDERED: LOSA100T57 PO (12:35)
[2019-09-26] MEDS ORDERED: ESTR0.5T PO (12:35)
[2019-09-26] MEDS ORDERED: MTP25TSR PO (12:35)
[2019-09-26] MEDS ORDERED: MIDAZOLAM 5 MG/5 ML (VERSED) VIAL ONE (12:57)
[2019-09-26] MEDS ORDERED: LIDOCAINE 1% INJ 20 ML 20 ML VIAL ONE (12:58)
[2019-09-26] MEDS ORDERED: fentaNYL INJECTION 100 MCG/2 ML AMP ONE (12:58)
[2019-09-26] MEDS ORDERED: HEParin (CATH LAB) 2,000 ML IV ONE (12:58)
[2019-09-26] MEDS ORDERED: NS IV 1000 ML 1,000 ML ONE (12:58)
[2019-09-26] MEDS ORDERED: HYDR12.56 PO (12:59)
[2019-09-26] MEDS ORDERED: DIPH25CA79 PO (13:12)
[2019-09-26] MEDS ORDERED: PEG15DRO9 OU (13:12)
[2019-09-26] MEDS ORDERED: NON-FORMULARY MEDICATION 1 EA EA (Diphenhydramine HCl (Benadryl) 25 MG) PO PRN (14:00)
[2019-09-26] MEDS ORDERED: [UNRECOGNIZED DRUG - OTHER] OU PRN (14:00)
[2019-09-26] MEDS ORDERED: GLYCERIN OU PRN (14:00)
[2019-09-26] MEDS ORDERED: SIMETHICONE 80 MG (MYLICON) CHEW PO PRN (14:00)
[2019-09-26] MEDS ORDERED: PEG OU PRN (14:00)
[2019-09-26] MEDS ORDERED: HYPROMELLOSE OU PRN (14:00)
--- NOTE | 2019-09-26 14:09 | Discharge Inst-Simple/Standard ---
Discharge Inst-Standard Patient Instructions/Follow Up Plan of Care/Instructions/FU: Please continue to take your medications as written. Activity as Tolerated: Yes Discharge Diet: Cardiac Diet Return to The Hospital For: Chest pain, shortness of breath, fever, confusion, if you feel you are getting worse. EMMA CENTENO MD Sep 26, 2019 14:09
--- NOTE | 2019-09-26 14:22 | Cardiac Procedure Note-CS/ASA ---
Pre-Procedure Note Pre-Op Procedure Note H&P Reviewed The H&P was reviewed, patient examined and no changes noted. Date H&P Reviewed: Sep 26, 2019 Time H&P Reviewed: 12:00 Conscious Sedation Pre-Proced Time 12:00 ASA Score 3 For ASA 3 and 4: Consider anesthesia and medical clearance. Also, for patients with a history of failed moderate sedation consider anesthesia. Airway Lungs Heart ASA score ASA 1: a normal healthy patient ASA 2: a patient with a mild systemic disease (mid diabetes, controlled hypertension, obesity ASA 3: a patient with a severe systemic disease that limits activity (angina, COPD, prior Myocardial infarction) ASA 4: a patient with an incapacitating disease that is a constant threat to life (CHF, renal failure) ASA 5: a moribund patient not expected to survive 24 hrs. (ruptured aneurysm) ASA 6: a declared brain- patient whose organs are being harvested. For emergent operations, add the letter E after the classification Mallampati Classification Grade 1 Sedation Plan Analgesia, Amnesia, Plan communicated to team members, Discussed options with patient/fam, Discussed risks with patient/fam The patient is an appropriate candidate to undergo the planned procedure, sedation, and anesthesia. The patient immediately re-assessed prior to indication. Carlos BARRON MD Sep 26, 2019 14:22
--- NOTE | 2019-09-26 14:25 | Coronary Angiography Report ---
Coronary Angiography Report DATE OF PROCEDURE: 09/26/19 INDICATION: Chest pain, borderline troponin. PREOPERATIVE DIAGNOSIS: Chest pain, borderline troponin. POSTOPERATIVE DIAGNOSIS: Patent epicardial coronary arteries. HISTORY: This is a 79-year-old lady with history of paroxysmal atrial fibrillation. She presented with recurrent chest pressure and borderline positive troponin. Therefore, the patient was scheduled for coronary angiography. PROCEDURES PERFORMED: 1.Coronary angiography. 2.Left heart catheterization. 3. Aortic root angiography: Medical necessity: To evaluate the ostium of the RCA. 4. Aortic arch angiogram: Medical necessity: To rule out aortic aneurysm/dissection in a patient with patent epicardial coronary arteries and chest pain. COMPLICATIONS: None. SPECIMENS: None. ESTIMATED BLOOD LOSS: 10 mL ANESTHESIA: Conscious sedation ANTICOAGULATION: None. CONTRAST: 94 mL. FLUOROSCOPY: 10.1 minutes. FLOUROSCOPY DOSE: 288 mgy. PROCEDURE DETAILS: The patient is a 79 female and was brought to the shrimp pond laborer after informed consent was taken. All the risks and complications were explained in detail; this included the risk of bleeding, vascular damage, stroke, PR and even . The patient was draped and prepped in the usual sterile fashion. Access was gained in the right femoral artery with a 5 Romansh sheath. Coronary angiography, left heart catheterization, aortic root angiogram and aortic arch angiogram was performed with a JR4, JL4 and pigtail catheter. FINDINGS: 1.Left main: Patent. 2.LAD: Patent. 3.Left circumflex artery: Patent. 4.RCA: Mild distal disease. Otherwise patent artery. 5.Left heart catheterization: LV pressure 157/17 mmHg. LVEDP 14 mmHg. Aortic pressure 146/70 mmHg. Normal LV function with no wall motion abnormalities. Gradient across the aortic valve of 11 mmHg. CONCLUSIONS: 1. Patent epicardial coronary arteries. 2. Paroxysmal atrial fibrillation, mild aortic stenosis. 3. Patient will follow-up with Dr. Barros as an outpatient. Monique Fortune MD, FACP, FACC, PSYCHIATRIC Interventional Cardiology Carlos FORTUNE MD Sep 26, 2019 14:25
[2019-09-26] MEDS ORDERED: NS IV 1000 ML 1,000 ML IV SCH (14:26)
[2019-09-26] MEDS ORDERED: PATIENT MAY USE OWN MEDS, ALL PO SCH (14:30)
[2019-09-26] MEDS ORDERED: diphenhydrAMINE 25 MG TAB (BENADRYL) PO PRN (14:45)
[2019-09-26] MEDS ORDERED: ARTIFICAL TEARS 0.4 ML UNIT DOSE (REFRESH PLUS) OU PRN (14:45)
--- NOTE | 2019-09-26 18:30 | NUR ---
Pt bedrest up, ambulating in room without difficulty. Groin site C/D/I
[2019-09-26] MEDS ORDERED: MONTELUKAST 10 MG (SINGULAIR) TAB PO SCH (21:00)
[2019-09-26] MEDS ORDERED: LEVETIRACETAM 500 MG (KEPPRA) TAB PO SCH (21:00)
[2019-09-26] MEDS ORDERED: APIXABAN 5 MG (ELIQUIS) TABLET PO SCH (21:00)
[2019-09-27] MEDS ORDERED: MULTIVIT W/MINERALS TAB (THERAGRAN M) PO SCH (08:00)
[2019-09-27] MEDS ORDERED: ESTRADIOL 1 MG TAB (ESTRACE) PO SCH (09:00)
[2019-09-27] MEDS ORDERED: HYDROCHLOROTHIAZIDE 12.5 MG (HCTZ) CAP PO SCH (09:00)
[2019-09-27] MEDS ORDERED: amLODIPine 5 MG (NORVASC) TAB PO SCH (09:00)
[2019-09-27] MEDS ORDERED: SERTRALINE 50 MG (ZOLOFT) TABLET PO SCH (09:00)
[2019-09-27] MEDS ORDERED: NON-FORMULARY MEDICATION 1 EA EA (Estradiol (Estradiol Tablet) 0.5 MG) PO SCH (09:00)
[2019-09-27] MEDS ORDERED: NON-FORMULARY MEDICATION 1 EA EA (Hydrochlorothiazide 12.5 MG) PO SCH (09:00)
[2019-09-27] MEDS ORDERED: NON-FORMULARY MEDICATION 1 EA EA (Sertraline HCl 25 MG) PO SCH (09:00)
[2019-09-27] MEDS ORDERED: ISOSORBIDE MONONITRATE 60 MG (IMDUR) TAB PO SCH (09:00)
[2019-09-27] MEDS ORDERED: LEVOTHYROXINE 100 MCG (LEVOTHROID) TAB PO SCH (09:00)
[2019-09-27] MEDS ORDERED: LOSARTAN 100 MG (COZAAR) TABLET PO SCH (09:00)
== END 2019-09-26 19:00 | disposition home or self-care (01) ==
LOC: ICU 22:41
PROVIDERS: ADMIT Internal Medicine; ATTEND Internal Medicine
DX: I48.0 Paroxysmal atrial fibrillation (principal); I35.0 Nonrheumatic aortic (valve) stenosis; I25.10 Atherosclerotic heart disease of native coronary artery without angina pectoris; E03.9 Hypothyroidism, unspecified; I25.2 Old myocardial infarction; I11.9 Hypertensive heart disease without heart failure; E78.00 Pure hypercholesterolemia, unspecified; G40.909 Epilepsy, unspecified, not intractable, without status epilepticus; Z88.0 Allergy status to penicillin; Z88.5 Allergy status to narcotic agent; Z90.89 Acquired absence of other organs; Z90.710 Acquired absence of both cervix and uterus; Z86.73 Personal history of transient ischemic attack (TIA), and cerebral infarction without residual deficits; Z79.899 Other long term (current) drug therapy; Z79.82 Long term (current) use of aspirin
CPT/HCPCS: 36221; 36415; 84484; 85025; 85379; 85610; 93005; 93306; 93458; 93567; 99211

== ENCOUNTER → 2020-12-03 | Outpatient (CLI) | payer BC, MEDICARE ==
[~2020-12-03] MED LIST changes: +AMLO-250 PO; -AMLO5TAB9 PO; +APIX5TAB PO; +ASPI-1238 PO; -ASPI-983 PO; -CETI10TA21 PO; +CETI10TA49 PO; +DIPH25CA79 PO; +ESTR0.5T PO; +HYDR12.56 PO; +ISOS60TA63 PO; +LEVE500T6 PO; -LISI-552 PO; +LISI20TA26 PO; +LOSA100T57 PO; +MONT10TA32 PO; +MTP25TSR PO; +MULT-567 PO; -MULT1TAB69 PO; +PEG15DRO9 OU; +SERT-412 PO
== END ==
LOC: CARD 09:00
PROVIDERS: ATTEND Internal Medicine Cardiovascular Disease
DX: I08.0 Rheumatic disorders of both mitral and aortic valves (principal); I11.9 Hypertensive heart disease without heart failure
CPT/HCPCS: 93306

== ENCOUNTER 2021-06-04 15:24 | Inpatient (IN) | payer BC, MEDICARE ==
[~2021-06-04] VITALS: Ht 160 cm; Wt 71.2 kg
[~2021-06-04 15:24] MED LIST changes: +MONT-40 PO; -MONT10TA32 PO
[2021-06-04] MEDS ORDERED: ANTACID SUSP 30 ML UDC (MYLANTA) PO PRN (15:45)
[2021-06-04] MEDS ORDERED: ONDANSETRON 4 MG/2 ML (SDV) Z0FRAN IV PRN (15:45)
[2021-06-04] MEDS ORDERED: polyethylene glycoL POWDER 17 GM (MIRALAX) PACK PO PRN (15:45)
[2021-06-04] MEDS ORDERED: ONDANSETRON 4 MG (ZOFRAN) ORAL DISSOLVE TAB PO PRN (15:45)
[2021-06-04] MEDS ORDERED: DONE10TA41 PO (17:56)
[2021-06-04] MEDS ORDERED: PANT40TA52 PO (17:56)
[2021-06-04] MEDS ORDERED: SERT-414 PO (17:56)
[2021-06-04] MEDS ORDERED: FLEC50TA PO (17:56)
[2021-06-04] MEDS ORDERED: ISOS30TA82 PO (17:56)
[2021-06-04] MEDS ORDERED: AMIT25TA9 PO (17:56)
--- NOTE | 2021-06-04 20:30 | History & Physical-Hospitalist ---
History of Present Illness HPI/Chief Complaint Concha Hyde is an 80 year old female with PMH HTN, HLD, CAD, hypothyroidism, depression, dementia, who was transferred from [facility] with chest pain. She reports substernal chest pressure without radiation. She denies diaphoresis .She denies nausea. She denies shortness of breath. Source: patient Exam Limitations: no limitations Date Seen 06/04/21 Time Seen by a Provider: 18:25 Attending Physician Tayla Stover MD PCP No,Local Physician Referring Physician Date of Admission Jun 04, 2021 at 16:48 Home Medications & Allergies Home Medications Reviewed patient Home Medication Reconciliation performed by pharmacy medication reconciliations respiratory care technician and/or nursing. Patients Allergies have been reviewed. Allergies Allergies Coded Allergies Penicillins (Verified Allergy, Severe, 07/10/18) SEIZURE morphine (Verified Allergy, Severe, 07/10/18) SEIZURE Past Acvgmvh-Hhgqup-Lzkxqu Hx Patient Social History Tobacco Use?: No Substance use?: No Alcohol Use?: No Pt feels they are or have been: No Immunizations Up To Date Date of Influenza Vaccine: Feb 02, 2018 First/Initial COVID19 Vaccinat: "doesn't remember" Second COVID19 Vaccination Anthony: "doesn't remember" Tetanus Booster (TDap): Unknown Hepatitis A: Yes Hepatitis B: Yes PED Vaccines UTD: No Date of Pneumonia Vaccine: Sep 25, 2014 Seasonal Allergies Seasonal Allergies: No Current Status Advance Directives: Yes Advance Directive Location: Home Communicates: Verbally Primary Language: Kiswahili Preferred Spoken Language: Kiswahili Is interpretation needed?: No Sensory deficits: Vision impairment Past Medical History Surgeries: Appendectomy, Gallbladder, Hysterectomy, Oophorectomy Asthma, COPD Currently Using CPAP: No Currently Using BIPAP: No Atrial Fibrillation, Coronary Artery Disease, Heart Attack, Heart Murmur, High Cholesterol, Hypertension, Valvular Heart Disease Seizure Disorder, Stroke STRANNER History: Hysterectomy Sexually Transmitted Disease: No HIV/AIDS: No Hypothyroidsim Blood Disorders: No Family Medical History No Pertinent Family Hx Review of Systems Constitutional: no symptoms reported EENTM: no symptoms reported Respiratory: no symptoms reported Cardiovascular: chest pain Gastrointestinal: no symptoms reported Genitourinary: no symptoms reported Musculoskeletal: no symptoms reported Skin: no symptoms reported Psychiatric/Neurological: No Symptoms Reported Physical Exam Physical Exam Vital Signs Vital Signs - First Documented 06/04/21 06/04/2106/04/22 16:45 16:54 17:05 Temp 36.2 Pulse 48 B/P (MAP) 90/54 Pulse Ox 93 O2 Delivery Room Air Capillary Refill : Height, Weight, BMI Height: 5'3.00" Weight: 137lbs. 0.0oz. 62.048834jd; 27.65 BMI Method: General Appearance: No Apparent Distress, WD/WN HEENT: PERRL/EOMI, Pharynx Normal Neck: Normal Inspection, Supple Respiratory: Lungs Clear, Normal Breath Sounds, No Respiratory Distress Cardiovascular: No Edema, Bradycardia, Systolic Murmur Gastrointestinal: Normal Bowel Sounds, Non Tender, Soft Extremity: Normal Inspection, Non Tender, No Pedal Edema Neurologic/Psychiatric: Alert, Oriented x3, No Motor/Sensory Deficits, Normal Mood/Affect Skin: Normal Color, Warm/Dry Results Results/Procedures Labs Patient resulted labs reviewed. Imaging: Reviewed Imaging Report Assessment/Plan Admission Diagnosis NSTEMI Admission Status: Inpatient Order (span 2 midnights) Reason for Inpatient Admission: Cardiology evaluation Assessment and Plan NSTEMI CAD HTN HLD AFib Troponin elevated EKG with left bundle branch block Cardiology consulted ASA given Lovenox Lipitor Hold Flecainide Hold Eliquis Echo ordered Diagnosis/Problems Diagnosis/Problems (1) NSTEMI (non-ST elevation myocardial infarction) Status: Acute (2) CAD (coronary artery disease) Status: Acute (3) HTN (hypertension) Status: Chronic (4) HLD (hyperlipidemia) Status: Chronic (5) Dementia Status: Chronic (6) Afib Status: Chronic (7) Depression Status: Chronic TAYLA STOVER MD Jun 04, 2021 20:30
[2021-06-04] MEDS: MONTELUKAST 10 MG (SINGULAIR) TAB PO SCH (22:22)
[2021-06-04] MEDS ORDERED: NS IV 500 ML 500 ML ONE (23:06)
[2021-06-04] MEDS ORDERED: NS IV 500 ML 500 ML IV ONE (23:30)
[2021-06-04 23:42] LABS: POTASSIUM 4.6 MMOL/L (3.6-5.0)
[2021-06-04 23:44] LABS: CALCIUM 7.9 MG/DL (8.5-10.1)
[2021-06-04 23:48] LABS: CREATININE SERUM 2.45 MG/DL (0.60-1.30)
[2021-06-04 23:50] LABS: MAGNESIUM 2.7 MG/DL (1.6-2.4)
[2021-06-05] MEDS ORDERED: NS IV 1000 ML 1,000 ML ONE (00:08)
[2021-06-05] MEDS ORDERED: HALOPERIDOL 5 MG/ML (HALDOL) VIAL IM ONE ×2 (04:15→19:30)
[2021-06-05] MEDS: PANTOPRAZOLE 40 MG (PROTONIX) TAB PO SCH (04:21)
[2021-06-05 04:59] LABS: POTASSIUM 4.5 MMOL/L (3.6-5.0)
[2021-06-05 05:00] LABS: CALCIUM 7.8 MG/DL (8.5-10.1)
[2021-06-05 05:04] LABS: CREATININE SERUM 2.51 MG/DL (0.60-1.30)
[2021-06-05] MEDS ORDERED: FLU QUAD HIGH DOSE 240 MCG/0.7 ML 2021-22 (FLUZONE) IM ONE (07:15)
[2021-06-05 07:48] LABS: TRIGLYCERIDES 61 MG/DL (<150); VLDL CHOLESTEROL 12 MG/DL (5-40)
[2021-06-05 07:49] LABS: BASOPHILS % (AUTO) 0 % (0-10); EOSINOPHILS % (AUTO) 0 % (0-10); HEMATOCRIT 38 % (35-52); HEMOGLOBIN 11.9 g/dL (11.5-16.0); LYMPHOCYTES % (AUTO) 11 % (12-44); MEAN CORPUSCULAR HEMOGLOBIN 29 pg (25-34); MEAN CORPUSCULAR HGB CONC 32 g/dL (32-36); MEAN CORPUSCULAR VOLUME 92 fL (80-99); MEAN PLATELET VOLUME 10.7 fL (9.0-12.2); MONOCYTES # (AUTO) 0.8 10^3/uL (0.0-1.0); MONOCYTES % (AUTO) 9 % (0-12); NEUTROPHILS # (AUTO) 6.9 10^3/uL (1.8-7.8); NEUTROPHILS % (AUTO) 79 % (42-75); PLATELET COUNT 279 10^3/uL (130-400); WHITE BLOOD COUNT 8.7 10^3/uL (4.3-11.0)
[2021-06-05 07:53] LABS: CHOLESTEROL 112 MG/DL (< 200)
[2021-06-05 07:54] LABS: HDL CHOLESTEROL 59 MG/DL (40-60)
[2021-06-05] MEDS ORDERED: ASPIRIN 81 MG CHEW (CHILDREN'S ASA) PO SCH (09:00)
[2021-06-05] MEDS ORDERED: ISOSORBIDE MONONITRATE 30 MG (IMDUR) TAB PO SCH (09:00)
[2021-06-05] MEDS: SERTRALINE 100 MG (ZOLOFT) TAB PO SCH (09:45)
[2021-06-05] MEDS: LEVOTHYROXINE 100 MCG (LEVOTHROID) TAB PO SCH (09:45)
[2021-06-05] MEDS: ISOSORBIDE MONONITRATE 60 MG (IMDUR) TAB PO SCH (09:47)
[2021-06-05] MEDS: LOSARTAN 100 MG (COZAAR) TABLET PO SCH (09:48)
--- NOTE | 2021-06-05 09:55 | Diagnostic Imaging Report ---
INDICATION: Chest pain. TECHNIQUE: Two view chest 9:02 AM CORRELATION STUDY: 07/10/2018 FINDINGS: Heart size, mediastinum, and vasculature slightly accentuated likely owing to hypoventilation. There is, however, questionable fullness of the right hilum. Asymmetric opacity in the right upper lobe. Mildly prominent interstitial markings. Thoracic spine is largely obscured by overlying monitor leads on the lateral projection. There do appear to be multiple at least mildly compressed thoracic vertebral bodies. Electronic device projects over the anterior chest. IMPRESSION: 1. New opacity of the right upper lobe. May reflect underlying areas of infiltrate/pneumonia. Slight fullness of the right hilum could be potentially reactive lymphadenopathy. However, given the overall findings, short-term follow-up imaging is recommended to exclude potential underlying neoplastic process. 2. Mildly prominent interstitial markings may reflect mild edema. Dictated by: Dictated on workstation # [id number]
--- NOTE | 2021-06-05 10:13 | Consultation-Cardiology ---
HPI-Cardiology Cardiology Consultation: Date of Consultation 06/05/2021 Date of Admission 06/04/2021 Attending Physician Tayla Don MD Admitting Physician No,Local Physician Consulting Physician ESTELA NOBLE JR, MD HPI: Time Seen by a Provider: 10:08 Chief Complaint: Reason for consultation: Chest pain and abnormal troponin level. I had the pleasure of seeing Concha in the intensive care unit at [facility] in [place], [place] this morning. She has a history of very mild coronary artery disease of the right coronary artery noted at cardiac catheterization in 2019, paroxysmal atrial fibrillation, aortic stenosis, hypertension, and hyperlipidemia. She lives alone but has people come in to help her with her medication. She tells me that yesterday she was visiting her daughter and had some chest discomfort. She describes this as a tightness in the center of her chest. She gets this sort of feeling at least several times per week. The chest tightness will last for a couple of minutes and resolve. She just waits for this to pass. Sometimes this will make her feel short of breath. She does not recall anything that seems to cause the chest discomfort. The chest discomfort has not changed in frequency, severity or duration. However, when she told her daughter about the chest pain yesterday, her daughter insisted that the patient go to the hospital. She presented to the emergency room in [place], [place]. She was found to have an elevated troponin level concerning for non-ST elevation myocardial infarction. She was subsequently transferred to our facility for further evaluation. She was initially admitted to our cardiac stepdown unit but last evening had some wide-complex tachycardia and was t ransferred to the intensive care unit. When I saw the patient this morning, she was pain-free. She does get some palpitations from time to time with the sensation of a fluttering in her chest. She denies associated complaints with those palpitations although has had syncope in the past. She denies any syncope for over 1 year. She does get some occasional lightheaded spells. She denies paroxysmal nocturnal dyspnea. She does have orthopnea and sleeps in a reclining bed with the head part way up. She gets occasional ankle edema but keeps her feet up when she is sleeping and this helps. Because of the chest discomfort and abnormal troponin levels, a cardiology consultation was requested. Certain portions of this document may have been dictated utilizing voice recognition technology. Inherent to this technology, typographical and grammatical errors may exist. As much as I am diligent to identify and correct these mistakes, some errors may remain in the document. Review of Systems-Cardiology Review of Systems Other comments Review of 10 organ systems is as per the history of present illness, otherwise negative. ADB-Lzzevw-Jhvhaj Hx Patient Social History Smoking Status: Never a Smoker Have you traveled recently?: No Alcohol Use?: No Pt feels they are or have been: No Immunizations Up To Date Date of Pneumonia Vaccine: Sep 25, 2014 Date of Influenza Vaccine: Feb 02, 2018 Past Medical History PMH As described under Assessment. Family Medical History Family Medical History: The patient does not know of any family history of premature coronary artery disease in first-degree relatives. Allergies and Home Medications Allergies Coded Allergies: Penicillins (Verified Allergy, Severe, 07/10/18) SEIZURE morphine (Verified Allergy, Severe, 07/10/18) SEIZURE Patient Home Medication List Home Medication List Reviewed: Yes Amitriptyline HCl (Amitriptyline HCl) 25 Mg Tablet, 25 MG PO HS, (Reported) Entered as Reported by: JOSEF TRINIDAD on 06/04/211755 Last Action: Held Apixaban (Eliquis) 5 Mg Tablet, 5 MG PO BID, (Reported) Entered as Reported by: YOSVANY MCLAIN on 09/26/19 1235 Last Action: Held Atorvastatin Calcium (Atorvastatin Calcium) 40 Mg Tablet, 40 MG PO HS, (Reported) Entered as Reported by: ABDIRAHMAN HENDRICKS on 07/10/18 1019 Last Action: Continued Calcium Carbonate (Tums) 200 Mg Tab.chew, 1 TAB PO TID PRN for INDIGESTION, (Reported) Entered as Reported by: ABDIRAHMAN HENDRICKS on 07/10/18 1102 Last Action: Held Diphenhydramine HCl (Benadryl) 25 Mg Capsule, 25-50 MG PO HS PRN for SLEEP, (Reported) Entered as Reported by: YOSVANY MCLAIN on 09/26/19 1312 Last Action: Held Donepezil HCl (Donepezil HCl) 10 Mg Tablet, 5 MG PO HS, (Reported) Entered as Reported by: JOSEF TRINIDAD on 06/04/211755 Last Action: Held Flecainide Acetate (Flecainide Acetate) 50 Mg Tablet, 50 MG PO BID, (Reported) Entered as Reported by: JOSEF TRINIDAD on 06/04/211755 Last Action: Held Isosorbide Mononitrate (Isosorbide Mononitrate ER) 60 Mg Tab, 60 MG PO DAILY, (Reported) Entered as Reported by: YOSVANY MCLAIN on 09/26/191234 Last Action: Continued Isosorbide Mononitrate (Isosorbide Mononitrate ER) 30 Mg Tab.er.24h, 30 MG PO DAILY, (Reported) Entered as Reported by: JOSEF TRINIDAD on 06/04/211755 Last Action: Continued Levetiracetam (Levetiracetam) 500 Mg Tablet, 500 MG PO HS, (Reported) Entered as Reported by: YOSVANY MCLAIN on 09/26/191234 Last Action: Continued Levothyroxine Sodium (Levothyroxine Sodium) 100 Mcg Tablet, 100 MCG PO DAILY, (Reported) Entered as Reported by: ABDIRAHMAN HENDRICKS on 07/10/18 1019 Last Action: Continued Losartan Potassium (Losartan Potassium) 100 Mg Tablet, 100 MG PO DAILY, (Reported) Entered as Reported by: YOSVANY MCLAIN on 09/26/191234 Last Action: Continued Montelukast Sodium (Montelukast Sodium) 10 Mg Tablet, 10 MG PO HS, (Reported) Entered as Reported by: YOSVANY MCLAIN on 09/26/191234 Last Action: Continued Pantoprazole Sodium (Pantoprazole Sodium) 40 Mg Tablet., 40 MG PO DAILY, (Reported) Entered as Reported by: JOSEF TRINIDAD on 06/04/211755 Last Action: Continued Sertraline HCl (Sertraline HCl) 100 Mg Tablet, 50 MG PO DAILY, (Reported) Entered as Reported by: JOSEF TRINIDAD on 06/04/211755 Last Action: Continued Discontinued Medications Amlodipine Besylate (Amlodipine Besylate) 5 Mg Tablet, 5 MG PO DAILY, (Reported) Discontinued Reason: No Longer Taking Entered as Reported by: YOSVANY MCLAIN on 09/26/191234 Last Action: Discontinued Aspirin (Aspirin EC) 81 Mg Tablet.dr, 81 MG PO DAILY PRN for CHEST PAIN, (Reported) Discontinued Reason: No Longer Taking Entered as Reported by: ABDIRAHMAN HENDRICKS on 07/10/18 1019 Last Action: Discontinued Estradiol (Estradiol Tablet) 0.5 Mg Tablet, 0.5 MG PO DAILY, (Reported) Discontinued Reason: No Longer Taking Entered as Reported by: YOSVANY MCLAIN on 09/26/19 1235 Last Action: Discontinued Hydrochlorothiazide (Hydrochlorothiazide) 12.5 Mg Tablet, 12.5 MG PO DAILY, (Reported) Discontinued Reason: No Longer Taking Entered as Reported by: YOSVANY MCLAIN on 09/26/19 1259 Last Action: Discontinued Metoprolol Succinate (Metoprolol Succinate) 25 Mg Tab.er.24h, 25 MG PO DAILY, (Reported) Discontinued Reason: No Longer Taking Entered as Reported by: YOSVANY MCLAIN on 09/26/19 1235 Last Action: Discontinued Multivitamin (Multivitamins) 1 Each Tablet, 1 TAB PO DAILY, (Reported) Discontinued Reason: No Longer Taking Entered as Reported by: ABDIRAHMAN HENDRICKS on 07/10/18 1019 Last Action: Discontinued Peg 400/Hypromellose/Glycerin (Visine Dry Eye Relief Drop) 15 Ml Drops, 2 DROPS OU PRN PRN for DRY EYES, (Reported) Discontinued Reason: No Longer Taking Entered as Reported by: YOSVANY MCLAIN on 09/26/19 1312 Last Action: Discontinued Sertraline HCl (Sertraline HCl) 25 Mg Tablet, 25 MG PO DAILY, (Reported) Discontinued Reason: No Longer Taking Entered as Reported by: YOSVANY MCLAIN on 09/26/19 1235 Last Action: Discontinued Simethicone (Simethicone) 80 Mg Tab.chew, 80 MG PO TID PRN for GAS, (Reported) Discontinued Reason: No Longer Taking Entered as Reported by: ABDIRAHMAN HENDRICKS on 07/10/18 1102 Last Action: Discontinued Exam Vital Signs Vital Signs Date Time Temp Pulse Resp B/P (MAP) Pulse Ox O2 Delivery O2 Flow Rate FiO2 06/05/21 12:56 53 06/05/21 12:00 36.8 06/05/21 11:55 15 118/54 97 Nasal Cannula 2.00 Physical Exam General: Alert. No acute distress. Well nourished and appears stated age. Eye: Extraocular movements are intact. Conjunctivae are clear. There are no xanthelasma. HENT: Normocephalic. Atraumatic. Carotid pulsations 2/2 without bruits. Neck: Jugular venous pressure does not appear elevated. No thyromegaly appreciated. Respiratory: Lungs are clear to auscultation. Respirations are non-labored. Breath sounds are equal. Symmetrical chest wall expansion. Cardiovascular: Normal rate. Regular rhythm. 2/6 systolic ejection murmur. No gallop. Point of maximal impulse is not appear displaced. Good pulses equal in all extremities. No edema. Gastrointestinal: Soft. Normal bowel sounds. Skin: Skin turgor is normal. There is no pallor. Musculoskeletal: No kyphosis or scoliosis appreciated. Neurologic: Alert and oriented to person, place, time. Cranial nerves 3-12 appear grossly intact. The patient has good motor tone strength in the upper and lower extremities bilaterally. Psychiatric: Cooperative. Appropriate mood & affect. Labs Laboratory Tests Test 06/04/21 17:03 06/04/21 22:30 06/04/21 22:45 06/05/21 02:45 Range/Units Troponin I 0.122 H 0.127 H <0.028 NG/ML Sodium Level 139 135-145 MMOL/L Potassium Level 4.6 3.6-5.0 MMOL/L Chloride Level 103 98-107 MMOL/L Carbon Dioxide Level 22 21-32 MMOL/L Anion Gap 14 5-14 MMOL/L Blood Urea Nitrogen 18 7-18 MG/DL Creatinine 2.45 H 0.60-1.30 MG/DL Estimat Glomerular Filtration Rate 19 BUN/Creatinine Ratio 7 Glucose Level 112 H 70-105 MG/DL Calcium Level 7.9 L 8.5-10.1 MG/DL Magnesium Level 2.7 H 1.6-2.4 MG/DL White Blood Count 8.7 4.3-11.0 10^3/uL Red Blood Count 4.06 3.80-5.11 10^6/uL Hemoglobin 11.9 11.5-16.0 g/dL Hematocrit 38 35-52 % Mean Corpuscular Volume 92 80-99 fL Mean Corpuscular Hemoglobin 29 25-34 pg Mean Corpuscular Hemoglobin Concent 32 32-36 g/dL Red Cell Distribution Width 13.5 10.0-14.5 % Platelet Count 279 130-400 10^3/uL Mean Platelet Volume 10.7 9.0-12.2 fL Immature Granulocyte % (Auto) 0 % Neutrophils (%) (Auto) 79 H 42-75 % Lymphocytes (%) (Auto) 11 L 12-44 % Monocytes (%) (Auto) 9 0-12 % Eosinophils (%) (Auto) 0 0-10 % Basophils (%) (Auto) 0 0-10 % Neutrophils # (Auto) 6.9 1.8-7.8 10^3/uL Lymphocytes # (Auto) 1.0 1.0-4.0 10^3/uL Monocytes # (Auto) 0.8 0.0-1.0 10^3/uL Eosinophils # (Auto) 0.0 0.0-0.3 10^3/uL Basophils # (Auto) 0.0 0.0-0.1 10^3/uL Immature Granulocyte # (Auto) 0.0 0.0-0.1 10^3/uL Test 06/05/21 04:30 Range/Units Sodium Level 138 135-145 MMOL/L Potassium Level 4.5 3.6-5.0 MMOL/L Chloride Level 103 98-107 MMOL/L Carbon Dioxide Level 21 21-32 MMOL/L Anion Gap 14 5-14 MMOL/L Blood Urea Nitrogen 20 H 7-18 MG/DL Creatinine 2.51 H 0.60-1.30 MG/DL Estimat Glomerular Filtration Rate 18 BUN/Creatinine Ratio 8 Glucose Level 112 H 70-105 MG/DL Calcium Level 7.8 L 8.5-10.1 MG/DL Magnesium Level 2.7 H 1.6-2.4 MG/DL Troponin I 0.174 H <0.028 NG/ML Triglycerides Level 61 <150 MG/DL Cholesterol Level 112 < 200 MG/DL LDL Cholesterol Direct 39 1-129 MG/DL VLDL Cholesterol 12 5-40 MG/DL HDL Cholesterol 59 40-60 MG/DL Radiology ECHOCARDIOGRAM (06/05/2021): 1. Left ventricle: The cavity size is normal. There is mild concentric hy pertrophy. Systolic function is normal. The estimated ejection fraction is 55- 60%. There were no regional wall motion abnormalities identified. Features are consistent with a pseudonormal left ventricular filling pattern, with concomitant abnormal relaxation and increased filling pressure (grade 2 diastolic dysfunction). 2. Left atrium: The left atrium is severely dilated with a volume index of 58 mL/m. 3. Mitral valve: There is mild to moderate regurgitation. 4. Aortic valve: The aortic valve appears tricuspid with thickened and calcified leaflets with at least mildly restricted motion. There is mild to moderate aortic stenosis with a mean gradient of 19 mmHg, a peak gradient of 35 mmHg, and a peak velocity of 3 m/s and a calculated aortic valve area of 1.4 cm. There is mild aortic regurgitation with a pressure half-time of 512 ms. 5. Pulmonary arteries: The estimated pulmonary artery systolic pressure is 43 mmHg assuming a right atrial pressure of 5 mmHg. 6. Compared to the previous report from 12/03/2020, the aortic valve gradients and pulmonary artery systolic pressure are slightly higher on this study. ECG Impression ECG Comment Sinus rhythm with left bundle branch block as well as intermittent left anterior hemiblock with right bundle branch block and intermittent sinus bradycardia. Diagnosis/Problems Diagnosis/Problems (1) Troponin level elevated Assessment & Plan: She has a marginally elevated troponin level. I suspect this may be related to some congestive heart failure. This most likely represents a type II non-ST elevation myocardial infarction due to supply/demand mismatch. She had a cardiac catheterization in 2019 that did not show any obstructive coronary artery disease. It would be unlikely for her to have had rapid progression of her coronary atherosclerosis resulting in a type I non-ST elevation myocardial infarction at this time. As such, I do not see any indication for cardiac catheterization. (2) Coronary artery disease with unstable angina pectoris Assessment & Plan: As above. I will restart her apixiban for atrial fibrillation. No aspirin since she takes apixiban. No beta solitario due to bradycardia. Continue statin. (3) Left bundle branch block Assessment & Plan: Electrocardiogram shows intermittent left bundle branch solitario alternating with right bundle branch block. This could be a sign of high grade AV block. I agree wtih stopping flecainide. No beta solitario due to this conduction abnormality. If this does not resolve, she may need a pacemaker. (4) Paroxysmal atrial fibrillation Assessment & Plan: She has been in sinus rhythm during this hospitalization. I recommend we discontinue the flecainide due to her previous history of coronary artery disease as well as her advanced age. If she does have recurrent atrial fibrillation when we stop this medication, we may need to consider an alternative antiarrhythmic drug. I have resumed her apixaban. Given the acute kidney injury and age over 80, she will need a lower dose of apixaban (5) Aortic stenosis Assessment & Plan: Todays echocardiogram shows mild-moderate aortic stenosis. This should not be causing symptoms but will need to be followed longitudinally. (6) Mitral regurgitation Assessment & Plan: This will also need to be followed after discharge. (7) Primary hypertension Assessment & Plan: Blood pressure is well controlled with losartan. (8) Mixed hyperlipidemia Assessment & Plan: Continue statin. ESTELA NOBLE JR, MD Jun 05, 2021 10:13
[2021-06-05] MEDS: HALOPERIDOL 5 MG/ML (HALDOL) VIAL IM ONE ×2 (14:10→14:42)
--- NOTE | 2021-06-05 21:03 | Progress Note - Hospitalist ---
Subjective HPI/CC On Admission Date Seen by Provider: Jun 05, 2021 Time Seen by Provider: 10:10 Concha Hyde is an 80 year old female with PMH HTN, HLD, CAD, hypothyroidism, depression, dementia, who was transferred from [facility] with chest pain. She reports substernal chest pressure without radiation. She denies diaphoresis .She denies nausea. She denies shortness of breath. Subjective/Events-last exam She is not having any chest pain. She denies shortness of breath. She is not feeling lightheaded or dizzy. She is alert and oriented. Objective Exam Vital Signs Vital Signs Date Time Temp Pulse Resp B/P (MAP) Pulse Ox O2 Delivery O2 Flow Rate FiO2 06/05/21 20:01 37.3 70 16 165/59 93 Nasal Cannula 2.00 Capillary Refill : General Appearance: No Apparent Distress, WD/WN Respiratory: Lungs Clear, Normal Breath Sounds, No Respiratory Distress Cardiovascular: No Edema, Bradycardia Gastrointestinal: Normal Bowel Sounds, Non Tender, Soft Extremity: Normal Inspection, Non Tender, No Pedal Edema Neurologic/Psychiatric: Alert, Oriented x3, Depressed Affect Skin: Normal Color, Warm/Dry Results/Procedures Lab Laboratory Tests 06/04/21 22:45 06/05/21 02:45 06/05/21 04:30 Patient resulted labs reviewed. Imaging: Reviewed Imaging Report Assessment/Plan Assessment and Plan Assess & Plan/Chief Complaint NSTEMI Left bundle branch block Right bundle branch block Bradycardia CAD HTN HLD AFib Cardiology following Not planning for left heart cath May require pacemaker placement Delirium Haldol as needed DVT prophylaxis: Lovenox Diagnosis/Problems Diagnosis/Problems (1) NSTEMI (non-ST elevation myocardial infarction) Status: Acute (2) CAD (coronary artery disease) Status: Acute (3) HTN (hypertension) Status: Chronic (4) HLD (hyperlipidemia) Status: Chronic (5) Dementia Status: Chronic (6) Afib Status: Chronic (7) Depression Status: Chronic ЮЛИЯ STOVER MD Jun 05, 2021 21:03
[2021-06-05] MEDS: MONTELUKAST 10 MG (SINGULAIR) TAB PO SCH (22:35)
[2021-06-05] MEDS: APIXABAN 2.5 MG (ELIQUIS) TABLET PO SCH (22:35)
[2021-06-06] MEDS: PANTOPRAZOLE 40 MG (PROTONIX) TAB PO SCH (06:32)
[2021-06-06] MEDS ORDERED: REGADENOSON 0.4 MG/5 ML SYR (LEXISCAN) IV ONE ×2 (07:30→12:30)
[2021-06-06 07:40] LABS: BASOPHILS % (AUTO) 0 % (0-10); EOSINOPHILS # (AUTO) 0.1 10^3/uL (0.0-0.3); EOSINOPHILS % (AUTO) 1 % (0-10); HEMATOCRIT 37 % (35-52); HEMOGLOBIN 11.9 g/dL (11.5-16.0); LYMPHOCYTES # (AUTO) 0.9 10^3/uL (1.0-4.0); LYMPHOCYTES % (AUTO) 10 % (12-44); MEAN CORPUSCULAR HEMOGLOBIN 30 pg (25-34); MEAN CORPUSCULAR HGB CONC 33 g/dL (32-36); MEAN CORPUSCULAR VOLUME 91 fL (80-99); MEAN PLATELET VOLUME 10.6 fL (9.0-12.2); MONOCYTES # (AUTO) 0.7 10^3/uL (0.0-1.0); MONOCYTES % (AUTO) 8 % (0-12); NEUTROPHILS # (AUTO) 7.4 10^3/uL (1.8-7.8); NEUTROPHILS % (AUTO) 81 % (42-75); PLATELET COUNT 218 10^3/uL (130-400); WHITE BLOOD COUNT 9.1 10^3/uL (4.3-11.0)
[2021-06-06 07:54] LABS: CALCIUM 7.9 MG/DL (8.5-10.1); CREATININE SERUM 1.37 MG/DL (0.60-1.30); POTASSIUM 4.5 MMOL/L (3.6-5.0)
[2021-06-06 09:02] LABS: BILIRUBIN,URINE NEGATIVE (NEGATIVE); CLARITY,URINE CLEAR; COLOR,URINE YELLOW; GLUCOSE, URINE (UA) NEGATIVE (NEGATIVE); KETONES,URINE 1+ (NEGATIVE); LEUKOCYTE ESTERASE ,URINE NEGATIVE (NEGATIVE); NITRITE,URINE NEGATIVE (NEGATIVE); PH,URINE 7.5 (5-9); PROTEIN,URINE NEGATIVE (NEGATIVE)
[2021-06-06 09:22] LABS: BACTERIA,URINE TRACE /HPF; SQUAMOUS EPITHELIAL CELL,UR 0-2 /HPF
[2021-06-06] MEDS: LOSARTAN 100 MG (COZAAR) TABLET PO SCH (10:06)
[2021-06-06] MEDS: SERTRALINE 100 MG (ZOLOFT) TAB PO SCH (10:06)
[2021-06-06] MEDS: ISOSORBIDE MONONITRATE 60 MG (IMDUR) TAB PO SCH (10:06)
[2021-06-06] MEDS: LEVOTHYROXINE 100 MCG (LEVOTHROID) TAB PO SCH (10:06)
[2021-06-06] MEDS: APIXABAN 2.5 MG (ELIQUIS) TABLET PO SCH (10:07)
[2021-06-06] MEDS ORDERED: CATHETER FLUSH 10 ML SYR IV PRN (10:45)
--- NOTE | 2021-06-06 11:06 | Cardiology Progress Note ---
Progress Note-Cardiology Events since last exam Date Seen by Provider: Jun 06, 2021 Time Seen by Provider: 11:05 Events since last exam I am following her due to chest pain and abnormal troponin. She denies any fu rther chest pain. She denies dyspnea, palpitations, syncope, or ankle edema. She thinks we are in [place] but she knows her middle school guidance counselor is Dr. Barros. Certain portions of this document may have been dictated utilizing voice recognition technology. Inherent to this technology, typographical and gram matical errors may exist. As much as I am diligent to identify and correct these mistakes, some errors may remain in the document. Vitals Last set of Vitals Signs Vital Signs 06/06/21 06/06/21 06/06/21 06/06/21 11:37 11:45 12:33 13:00 Temp 37.4 Pulse 73 Resp 26 B/P (MAP) 180/73 Pulse Ox 96 O2 Delivery Nasal Cannula O2 Flow Rate 2.00 Labs Labs Laboratory Tests 06/06/21 07:20 Exam Vital Signs Vital Signs Date Time Temp Pulse Resp B/P (MAP) Pulse Ox O2 Delivery O2 Flow Rate FiO2 06/06/21 13:00 73 06/06/21 12:33 180/73 06/06/21 11:45 96 Nasal Cannula 2.00 06/06/21 11:37 37.4 26 Physical Exam General: Alert. No acute distress. Eye: No xanthelasma. HENT: Normocephalic. Neck: Jugular venous pressure does not appear elevated. Respiratory: Lungs are clear to auscultation. Respirations are non-labored. Breath sounds are equal. Symmetrical chest wall expansion. Cardiovascular: Normal rate. Regular rhythm. 2/6 systolic ejection murmur. No gallop. No edema. Gastrointestinal: Soft. Normal bowel sounds. Skin: Warm. Dry. Neurologic: Alert and oriented to person only. Cranial nerves 3-11 grossly intact. Psychiatric: Cooperative. Appropriate mood & affect. Labs Laboratory Tests Test 06/06/21 07:20 06/06/21 07:45 Range/Units White Blood Count 9.1 4.3-11.0 10^3/uL Red Blood Count 4.01 3.80-5.11 10^6/uL Hemoglobin 11.9 11.5-16.0 g/dL Hematocrit 37 35-52 % Mean Corpuscular Volume 91 80-99 fL Mean Corpuscular Hemoglobin 30 25-34 pg Mean Corpuscular Hemoglobin Concent 33 32-36 g/dL Red Cell Distribution Width 13.2 10.0-14.5 % Platelet Count 218 130-400 10^3/uL Mean Platelet Volume 10.6 9.0-12.2 fL Immature Granulocyte % (Auto) 0 % Neutrophils (%) (Auto) 81 H 42-75 % Lymphocytes (%) (Auto) 10 L 12-44 % Monocytes (%) (Auto) 8 0-12 % Eosinophils (%) (Auto) 1 0-10 % Basophils (%) (Auto) 0 0-10 % Neutrophils # (Auto) 7.4 1.8-7.8 10^3/uL Lymphocytes # (Auto) 0.9 L 1.0-4.0 10^3/uL Monocytes # (Auto) 0.7 0.0-1.0 10^3/uL Eosinophils # (Auto) 0.1 0.0-0.3 10^3/uL Basophils # (Auto) 0.0 0.0-0.1 10^3/uL Immature Granulocyte # (Auto) 0.0 0.0-0.1 10^3/uL Sodium Level 135 135-145 MMOL/L Potassium Level 4.5 3.6-5.0 MMOL/L Chloride Level 106 98-107 MMOL/L Carbon Dioxide Level 19 L 21-32 MMOL/L Anion Gap 10 5-14 MMOL/L Blood Urea Nitrogen 20 H 7-18 MG/DL Creatinine 1.37 H 0.60-1.30 MG/DL Estimat Glomerular Filtration Rate 37 BUN/Creatinine Ratio 15 Glucose Level 91 70-105 MG/DL Calcium Level 7.9 L 8.5-10.1 MG/DL Urine Color YELLOW Urine Clarity CLEAR Urine pH 7.5 5-9 Urine Specific [place] 1.015 L 1.016-1.022 Urine Protein NEGATIVE NEGATIVE Urine Glucose (UA) NEGATIVE NEGATIVE Urine Ketones 1+ H NEGATIVE Urine Nitrite NEGATIVE NEGATIVE Urine Bilirubin NEGATIVE NEGATIVE Urine Urobilinogen 0.2 < = 1.0 MG/DL Urine Leukocyte Esterase NEGATIVE NEGATIVE Urine RBC (Auto) TRACE-I H NEGATIVE Urine RBC 2-5 H /HPF Urine WBC 5-10 H /HPF Urine Squamous Epithelial Cells 0-2 /HPF Urine Crystals NONE /LPF Urine Bacteria TRACE /HPF Urine Casts NONE /LPF Urine Mucus NEGATIVE /LPF Urine Culture Indicated NO Radiology REGADENOSON NUCLEAR STRESS TEST (06/06/2021): 1. Normal heart rate and blood pressure response to regadenoson with resting hypertension. 2. There was no chest discomfort, arrhythmias, or electrocardiogram changes during the test. 3. There was normal myocardial perfusion in all segments without evidence of infarction or ischemia. 4. There was normal wall motion in all segments with a calculated ejection fraction of 77%. ECHOCARDIOGRAM (06/05/2021): 1. Left ventricle: The cavity size is normal. There is mild concentric hypertrophy. Systolic function is normal. The estimated ejection fraction is 55- 60%. There were no regional wall motion abnormalities identified. Features are consistent with a pseudonormal left ventricular filling pattern, with concomitant abnormal relaxation and increased filling pressure (grade 2 diastolic dysfunction). 2. Left atrium: The left atrium is severely dilated with a volume index of 58 mL/m. 3. Mitral valve: There is mild to moderate regurgitation. 4. Aortic valve: The aortic valve appears tricuspid with thickened and calcified leaflets with at least mildly restricted motion. There is mild to moderate aortic stenosis with a mean gradient of 19 mmHg, a peak gradient of 35 mmHg, and a peak velocity of 3 m/s and a calculated aortic valve area of 1.4 cm. There is mild aortic regurgitation with a pressure half-time of 512 ms. 5. Pulmonary arteries: The estimated pulmonary artery systolic pressure is 43 mmHg assuming a right atrial pressure of 5 mmHg. 6. Compared to the previous report from 12/03/2020, the aortic valve gradients and pulmonary artery systolic pressure are slightly higher on this study. Diagnosis/Problems Diagnosis/Problems (1) Troponin level elevated Assessment & Plan: She has a marginally elevated troponin level. I suspect this may be related to some congestive heart failure. This most likely represents a type II non-ST elevation myocardial infarction due to supply/demand mismatch. She had a cardiac catheterization in 2019 that did not show any obstructive coronary artery disease. It would be unlikely for her to have had rapid progression of her coronary atherosclerosis resulting in a type I non-ST elevation myocardial infarction at this time. Her nuclear stress test from 06/06/2021 shows normal perfusion. As such, I do not see any strong indication for cardiac catheterization at this time. (2) Coronary artery disease with unstable angina pectoris Assessment & Plan: She had been complaining of some chest discomfort around the time of admission but this has now resolved. Her nuclear stress test was normal. As above. I have restarted her apixiban for atrial fibrillation. No as pirin since she takes apixiban. No beta solitario due to bradycardia. Continue statin. As above, I do not see any strong indication for cardiac catheterization at this time. (3) Left bundle branch block Assessment & Plan: Electrocardiogram shows intermittent left bundle branch solitario alternating with right bundle branch block. This could be a sign of imp ending high grade AV block. I agree wtih stopping flecainide which was stopped by the hospitalist. No beta solitario due to this conduction abnormality. 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 She may need a permanent pacemaker. I will leave this up to the discretion of her regular middle school guidance counselor who should be back in the hospital on 06/07/2021. Given her alternating left and right bundle branch block and possible need for permanent pacemaker implantation, I will place her apixaban on hold. (4) Paroxysmal atrial fibrillation Assessment & Plan: She has been in sinus rhythm during this hospitalization. I recommend we discontinue the flecainide due to her previous history of coronary artery disease as well as her advanced age. If she does have recurrent atrial fibrillation when we stop this medication, we may need to consider an alternative antiarrhythmic drug. I have resumed her apixaban. Given the acute kidney injury and age over 80, she will need a lower dose of apixaban and I have taken the liberty of making this change. As above, since she might need a permanent pacemaker, I will hold the apixaban this evening and tomorrow morning. (5) Aortic stenosis Assessment & Plan: Her echocardiogram from this admission shows mild-moderate aortic stenosis. This should not be causing symptoms but will need to be followed longitudinally. (6) Mitral regurgitation Assessment & Plan: This will also need to be followed after discharge. (7) Primary hypertension Assessment & Plan: Her blood pressures have been intermittently elevated. If t his persists, we may need to make some adjustments to her antihypertensive medication. (8) Mixed hyperlipidemia Assessment & Plan: Continue statin. ESTELA NOBLE JR, MD Jun 06, 2021 11:06
--- NOTE | 2021-06-06 13:04 | Progress Note - Hospitalist ---
Subjective HPI/CC On Admission Date Seen by Provider: Jun 06, 2021 Time Seen by Provider: 09:45 Concha Hyde is an 80 year old female with PMH HTN, HLD, CAD, hypothyroidism, depression, dementia, who was transferred from [facility] with chest pain. She reports substernal chest pressure without radiation. She denies diaphoresis .She denies nausea. She denies shortness of breath. Subjective/Events-last exam She is not short of breath. She denies chest pain. She denies lightheadedness and dizziness. She wants to eat and drink. Objective Exam Vital Signs Vital Signs Date Time Temp Pulse Resp B/P (MAP) Pulse Ox O2 Delivery O2 Flow Rate FiO2 06/06/21 12:33 73 180/73 06/06/21 11:45 96 Nasal Cannula 2.00 06/06/21 11:37 37.4 26 Capillary Refill : General Appearance: No Apparent Distress, WD/WN Respiratory: Lungs Clear, Normal Breath Sounds, No Respiratory Distress Cardiovascular: Regular Rate, Rhythm, Systolic Murmur Gastrointestinal: Normal Bowel Sounds, Soft Extremity: Normal Inspection, No Pedal Edema Neurologic/Psychiatric: Alert, No Motor/Sensory Deficits Skin: Normal Color, Warm/Dry Results/Procedures Lab Laboratory Tests 06/06/21 07:20 Patient resulted labs reviewed. Imaging: Reviewed Imaging Report Assessment/Plan Assessment and Plan Assess & Plan/Chief Complaint NSTEMI Left bundle branch block Right bundle branch block Bradycardia CAD HTN HLD AFib Cardiology following Not planning for left heart cath Stress test ordered May require pacemaker placement Delirium UA negative for UTI Haldol as needed DVT prophylaxis: Lovenox Diagnosis/Problems Diagnosis/Problems (1) NSTEMI (non-ST elevation myocardial infarction) Status: Acute (2) CAD (coronary artery disease) Status: Acute (3) HTN (hypertension) Status: Chronic (4) HLD (hyperlipidemia) Status: Chronic (5) Dementia Status: Chronic (6) Afib Status: Chronic (7) Depression Status: Chronic ЮЛИЯ STOVER MD Jun 06, 2021 13:04
--- NOTE | 2021-06-06 14:38 | NUCLEAR STRESS TEST ---
REGADENOSON NUCLEAR STRESS Date of procedure: 06/06/2021. Primary care provider: No local physician Admitting physician: Van Kraus Jr., MD. INDICATION: Abnormal troponin and abnormal electrocardiogram. BASELINE ELECTROCARDIOGRAM: Sinus rhythm with first-degree AV block, left anterior hemiblock and right bundle branch block. STRESS TEST PROCEDURE: The patient was administered 0.4 mg of intravenous Regadenoson. The resting heart rate was 73 bpm and the peak heart rate was 88 bpm. The resting blood pressure was 180/76 mmHg and the minimum blood pressure was 145/58 mmHg. This represents a normal heart rate and a normal blood pressure response to Regadenoson with resting hypertension. The test was stopped due to the protocol. There was no chest discomfort during the test. There were no arrhythmias during the test. There were no significant stress induced electrocardiogram changes. NUCLEAR PROCEDURE: The patient was administered 10.3 mCi of intravenous technetium 99m Tetrofosmin at rest for the rest images. The patient was subsequently administered 32.6 mCi of intravenous technetium 99m Tetrofosmin at peak stress for the stress images. Following an appropriate wait after each injection, imaging was obtained. The images were subsequently processed and reformatted in the usual views. Gated imaging was obtained. The image quality was adequate with a mild degree of gastrointestinal attenuation artifact. CT attenuation correction was used as a adjunct to standard imaging. Both the corrected and uncorrected images were reviewed for interpretation. NUCLEAR RESULTS: There was normal myocardial perfusion in all segments without evidence of infarction or ischemia. There was normal left ventricular chamber size with an end-diastolic volume of 72 mL and an end-systolic volume of 17 mL. There was no evidence of transient ischemic dilatation. The TID ratio was 1.18. There was normal wall motion in all segments with a calculated ejection fraction of 77%. IMPRESSION: 1. Normal heart rate and blood pressure response to regadenoson with resting hypertension. 2. There was no chest discomfort, arrhythmias, or electrocardiogram changes during the test. 3. There was normal myocardial perfusion in all segments without evidence of infarction or ischemia. 4. There was normal wall motion in all segments with a calculated ejection fraction of 77%. Certain portions of this document may have been dictated utilizing voice recognition technology. Inherent to this technology, typographical and grammatical errors may exist. As much as I am diligent to identify and correct these mistakes, some errors may remain in the document. VAN KRAUS JR, MD Jun 06, 2021 14:38
[2021-06-06] MEDS: MONTELUKAST 10 MG (SINGULAIR) TAB PO SCH (20:35)
[2021-06-06] MEDS ORDERED: PROMETHAZINE 12.5 MG (PHENERGAN) SUPP PR PRN (21:00)
[2021-06-06] MEDS ORDERED: fentaNYL INJ 100 MCG/2 ML AMP IVP PRN (21:00)
[2021-06-07 06:24] LABS: BASOPHILS % (AUTO) 0 % (0-10); EOSINOPHILS # (AUTO) 0.1 10^3/uL (0.0-0.3); EOSINOPHILS % (AUTO) 1 % (0-10); HEMATOCRIT 36 % (35-52); HEMOGLOBIN 11.6 g/dL (11.5-16.0); LYMPHOCYTES # (AUTO) 1.2 10^3/uL (1.0-4.0); LYMPHOCYTES % (AUTO) 12 % (12-44); MEAN CORPUSCULAR HEMOGLOBIN 29 pg (25-34); MEAN CORPUSCULAR HGB CONC 32 g/dL (32-36); MEAN CORPUSCULAR VOLUME 91 fL (80-99); MEAN PLATELET VOLUME 10.8 fL (9.0-12.2); MONOCYTES # (AUTO) 0.9 10^3/uL (0.0-1.0); MONOCYTES % (AUTO) 9 % (0-12); NEUTROPHILS # (AUTO) 7.4 10^3/uL (1.8-7.8); NEUTROPHILS % (AUTO) 77 % (42-75); PLATELET COUNT 241 10^3/uL (130-400); WHITE BLOOD COUNT 9.6 10^3/uL (4.3-11.0)
[2021-06-07 06:35] LABS: ALBUMIN 3.2 GM/DL (3.2-4.5); POTASSIUM 3.8 MMOL/L (3.6-5.0)
[2021-06-07 06:36] LABS: CALCIUM 7.9 MG/DL (8.5-10.1)
[2021-06-07] MEDS: PANTOPRAZOLE 40 MG (PROTONIX) TAB PO SCH (06:37)
[2021-06-07 06:41] LABS: CREATININE SERUM 0.89 MG/DL (0.60-1.30)
[2021-06-07] MEDS: LOSARTAN 100 MG (COZAAR) TABLET PO SCH (08:21)
[2021-06-07] MEDS: LEVOTHYROXINE 100 MCG (LEVOTHROID) TAB PO SCH (08:21)
[2021-06-07] MEDS: SERTRALINE 100 MG (ZOLOFT) TAB PO SCH (08:21)
[2021-06-07] MEDS: ISOSORBIDE MONONITRATE 60 MG (IMDUR) TAB PO SCH (08:21)
--- NOTE | 2021-06-07 10:37 | Diagnostic Imaging Report ---
INDICATION: Shortness of breath. EXAMINATION: PA and lateral chest. FINDINGS: There is infiltrate present in the right upper lobe. There is also some perihilar infiltrate or atelectasis bilaterally. IMPRESSION: Right upper lobe and bilateral perihilar infiltrates versus atelectasis. No significant change compared to 06/05/2021. Dictated by: Dictated on workstation # [id number]
--- NOTE | 2021-06-07 11:22 | Occupational Therapy Eval ---
OT Evaluation-General/PLF Medical Diagnosis Admission Date Jun 04, 2021 at 16:48 Medical Diagnosis: NSTEMI Onset Date: Jun 04, 2021 Therapy Diagnosis Therapy Diagnosis: decreased ADL Status Height/Weight Height (Feet): 5 Height (Inches): 3.00 Weight (Pounds): 137 Weight (Ounces): 0.0 Precautions Precautions/Isolations: Fall Prevention, Standard Precautions Referral Physician: Arian Referral Reason: Evaluation/Treatment Medical History Additional Medical History HTN, HLD, CAD, hypothyroidism, depression, dementia, COPD, Afib, Seizures, CVA Current History transfer from [facility] with chest pain. Social History Current Living Status: Alone ADL-Prior Level of Function SCALE: Activities may be completed with or without assistive devices. 1-Qlitacreky-nwcwayb completes the activity by him/herself with no assistance from a helper. 5-Set-up or Clean-up Assistance-helper sets up or cleans up; patient completes activity. [place] assists only prior to or following the activity. 4-Supervision or Touching Assistance-helper provides verbal cues and/or touching/steadying and/or contact guard assistance as patient completes activity. Assistance may be provided throughout the activity or intermittently. 3-Partial/Moderate Assistance-helper does LESS THAN HALF the effort. [place] lifts, holds or supports trunk or limbs, but provides less than half the effort. 2-Substantial/Maximal Assistance-helper does MORE THAN HALF the effort. [place] lifts or holds trunk or limbs and provides more than half the effort. 6-Wnpezovyy-gnphny does ALL the effort. Patient does none of the effort to complete the activity. Or, the assistance of 2 or more helpers is required for the patient to complete the activity. If activity was not attempted, code reason: 7-Patient Refused. 9-Not Applicable-not attempted and the patient did not perform the activity before the current illness, exacerbation or injury. 10-Not Attempted due to Environmental Limitations-(lack of equipment, weather restraints, etc.). 88-Not Attempted due to Medical Conditions or Safety Concerns. ADL PLOF Comments Per pt report, she was independent with ADLs and functional mobility, no AD. She has electric meter tester helper that comes in 2 hours 3 times a week to assist with cleaning and medication management. She has a walk in shower without SC Self Care: Independent DME/Equipment: Shower OT Current Status Subjective Pt in bed, agreeable to OT tx Mental Status/Objective Patient Orientation: Person, Place Attachments: Oxygen (2L), Suprapubic Catheter Current Upper Extremity ROM WFL during ADLs Upper Extremity Coordination WFL Upper Extremity Sensation WFL Upper Extremity Strength grossly 3/5 ADL-Treatment On/Off Footwear (QC): 4 (SBA) Toileting Hygiene (QC): 4 (SBA) Other Treatments Pt laying in bed, transferred supine to sit EOB, SBA. Pt used FWW to go into bathroom, CGA. Pt transferred to toilet, completed toileting with SBA, then stood at sink to wash her hands with SBA. Pt returned to bed, CGA. Pt had O2 off at start of session, O2 saturation in 90%'s at rest. After returning from the bathroom, O2 saturation in low 80%'s, O2 applied at 2L and returned to 90%'s within 10 seconds. Pt able to doff/don gripper socks at EOB, SBA. Pt transferred supine, post tx, pt in bed, call light in reach and all needs met, bed alarm activated. Education OT Patient Education: Correct positioning, Energy conservation, Modified ADL techniques, Progress toward Goal/Update tx plan, Purpose of tx/functional activities, Rehab process Teaching Recipient: Patient Teaching Methods: Discussion Response to Teaching: Verbalize Understanding OT Penitentiary Goals Penitentiary Goals Time Frame: Jun 17, 2021 Eating (QC): 6 Oral Hygiene (QC): 6 Toileting Hygiene (QC): 6 Shower/Bathe Self (QC): 4 Upper Body Dressing (QC): 5 Lower Body Dressing (QC): 4 On/Off Footwear (QC): 4 Additional Goals: 1-Demonstrate ADL Tasks, 2-Verbalize Understanding, 3-ImproveStrength/Bev 1=Demonstrate adherence to instructed precautions during ADL tasks. 2=Patient will verbalize/demonstrate understanding of assistive devices/modifications for ADL. 3=Patient will improve strength/tolerance for activity to enable patient to per form ADL's. OT Education/Plan Problem List/Assessment Assessment: Decreased Activ Tolerance, Decreased UE Strength, Impaired Funct Balance, Impaired I ADL's, Impaired Self-Care Skills Discharge Recommendations Plan/Recommendations: Continue POC Treatment Plan/Plan of Care Patient would benefit from OT for education, treatment and training to promote independence in ADL's, mobility, safety and/or upper extremity function for ADL's. Plan of Care: ADL Retraining, Functional Mobility, UE Funct Exercise/Act Treatment Duration: Jun 17, 2021 Frequency: 3 times per week (3-5 times per week) Rehab Potential: Fair Time/GCodes Start Time: 10:25 Stop Time: 10:43 Total Time Billed (hr/min): 18 Billed Treatment Time 1, LILIAM ADAMSON OT Jun 07, 2021 11:22
[2021-06-07] MEDS ORDERED: amLODIPine 10 MG (NORVASC) TAB PO ONE (11:30)
--- NOTE | 2021-06-07 11:32 | Physical Therapy Evaluation ---
PT Evaluation-General Medical Diagnosis Admission Date Jun 04, 2021 at 16:48 Medical Diagnosis: NSTEMI Onset Date: Jun 04, 2021 Therapy Diagnosis Therapy Diagnosis: debility Height/Weight Height (Feet): 5 Height (Inches): 3.00 Weight (Pounds): 137 Weight (Ounces): 0.0 Precautions Precautions/Isolations: Fall Prevention, Standard Precautions Referral Physician: Arian Reason for Referral: Evaluation/Treatment Medical History Pertinent Medical History: Atrial Fib, CAD, CVA, Dementia, HTN, Hypothroidism Current History Transfer from [facility] for higher level of care Reviewed History: Yes Social History Home: [facility] Current Living Status: Alone Prior Prior Level of Function SCALE: Activities may be completed with or without assistive devices. 5-Vzqxoojtvq-gibipes completes the activity by him/herself with no assistance from a helper. 5-Set-up or Clean-up Assistance-helper sets up or cleans up; patient completes activity. [place] assists only prior to or following the activity. 4-Supervision or Touching Assistance-helper provides verbal cues and/or touching/steadying and/or contact guard assistance as patient completes activity. Assistance may be provided throughout the activity or intermittently. 3-Partial/Moderate Assistance-helper does LESS THAN HALF the effort. [place] lift s, holds or supports trunk or limbs, but provides less than half the effort. 2-Substantial/Maximal Assistance-helper does MORE THAN HALF the effort. [place] lifts or holds trunk or limbs and provides more than half the effort. 1-Jkszyedku-zbwrlb does ALL the effort. Patient does none of the effort to complete the activity. Or, the assistance of 2 or more helpers is required for the patient to complete the activity. If activity was not attempted, code reason: 7-Patient Refused. 9-Not Applicable-not attempted and the patient did not perform the activity before the current illness, exacerbation or injury. 10-Not Attempted due to Environmental Limitations-(lack of equipment, weather restraints, etc.). 88-Not Attempted due to Medical Conditions or Safety Concerns. Bed Mobility: 6 Transfers (B,C,W/C): 6 Gait: 6 Stairs: 6 Indoor Mobility (Ambulation): Independent Stairs: Independent Prior Devices Use: None PT Evaluation-Current Subjective Patient agrees to PT. Objective Patient Orientation: Normal For Age Attachments: Oxygen, Tang Catheter ROM/Strength ROM Lower Extremities bilateral LE WFL Strength Lower Extremities 4-/5 grossly bilateral LE Integumentary/Posture Bladder Incontinence: Tang Cath Posture WFL Neuromuscular (Tone, Coordination, Reflexes) grossly intact Sensory Vision: Functional Hearing: Functional Transfers Lying to Sitting/Side of Bed(Q: 4 Sit to Stand (QC): 4 Chair/Ggr-oy-Samuq Xfer(QC): 4 Gait Does the Patient Walk?: Yes Mode of Locomotion: Walk Anticipated Mode of Locomotion: Walk Walk 10 feet (QC): 4 Walk 50 ft with 2 Turns(QC): 4 Walk 150 ft (QC): 4 Distance: 225' Gait Assistive Device: FWW Comments/Gait Description slow, steady, safe and functional Balance Sitting Static: Normal Sitting Dynamic: Normal Standing Static: Normal Standing Dynamic: Normal Assessment/Needs 80 y.o. female, will be seen by skilled PT to address functional strength and mobility to improve current LOF to safely return to home at maximum LOF. Rehab Potential: Fair PT Lap Cutter Truer Operator Goals Fdc Goals PT Lap Cutter Truer Operator Goals Time Frame: Jun 18, 2021 Roll Left & Right (QC): 6 Sit to Lying (QC): 6 Lying-Sitting on Side/Bed(QC): 6 Sit to Stand (QC): 6 Chair/Bea-pt-Jjqrw Xfer(QC): 6 Toilet Transfer (QC): 6 Walk 10 feet (QC): 6 Walk 50ft with 2 Turns (QC): 6 Walk 150 ft (QC): 6 PT Plan Problem List Problem List: Activity Tolerance, Functional Strength, Safety, Gait, Transfer, Bed Mobility Treatment/Plan Treatment Plan: Continue Plan of Care Treatment Plan: Bed Mobility, Education, Functional Activity Bev, Functional Strength, Gait, Safety, Therapeutic Exercise, Transfers Treatment Duration: Jun 18, 2021 Frequency: 6 times per week Estimated Hrs Per Day: .25 hour per day Patient and/or Family Agrees t: Yes Time/GCodes Time In: 1100 Time Out: 1123 Total Billed Treatment Time: 23 Total Billed Treatment 1 visit EVModC 23 min PRICE DE LA ROSA PT Jun 07, 2021 11:32
[2021-06-07] MEDS ORDERED: AMLO-251 PO (12:37)
--- NOTE | 2021-06-07 12:44 | D/C HH Face to Face Order ---
D/C Face to Face Orders Instructions for Patient Via [facility], Patient Instructions/FollowUp: Take medications as prescribed. Follow up with your PCP and Application Coordinator. Return with worsening chest pain, shortness of breath, or if you feel like you are getting worse. Physician to follow Patient: Venancio Gutiérrez Discharge Diet for Home: Low Sodium Diet Patient Data-Allergies,Ht & Wt Patient Allergies: Coded Allergies: Penicillins (Verified Allergy, Severe, 07/10/18) SEIZURE morphine (Verified Allergy, Severe, 07/10/18) SEIZURE Height (Feet): 5 Height (Inches): 3.00 Weight (Pounds): 137 Weight (Ounces): 0.0 Home Health Need/Face to Face Date of Face to Face: Jun 07, 2021 Clinical Findings: Generalized weakness and fatigue, Instability, Muscle weakness, Shortness of breath, Unsteady gait I have seen Pt [id number]: Yes Discharged To: Home Diagnosis/Conditions: Atrial fibrillation Hypertension Hyperlipidemia Dementia Problems/Diagnosis/Condition: (1) Primary hypertension (2) Mixed hyperlipidemia (3) Paroxysmal atrial fibrillation (4) Dementia Patient is Homebound due to: CognItive deficits, Maria L fall risk due to instabilty, Muscle weakness Homebound Status Due to the above stated illness, injury or surgical procedure (medical condition or diagnosis) and associated clinical findings, the patient is h omebound because of his/her inability to leave home except with aid of a supportive device and/or person AND leaving the home requires a considerable and taxing effort or is medically contraindicated. Pt req the following assistanc: Aid of another person Home Health Nursing Orders Home Health Services Order: Nursing Services, Labor Representative-Evaluate & Treat, Physical Therapy-Evaluate & Treat Therapy Orders Therapy Orders: OT (must have SN or PT order), Physical Therapy Therapy Specific Orders: Eval assistive deivces, Teach enviro modifications/safety, Gait training, Increase strength/endurance Certify Stmt I certify that this patient is under my care and that I, a nurse practitioner or a physician; a assistant laboratory director working with me, had a face to face encounter that - meets the physician face to face encounter requirements with this patient as dated. ЮЛИЯ STOVER MD Jun 07, 2021 12:44
--- NOTE | 2021-06-07 14:00 | Cardiology Progress Note ---
Subjective Date Seen by Provider: Jun 07, 2021 Time Seen by Provider: 13:55 Subjective/Events-last exam Patient was seen at bedside, she is laying down comfortably, denied any active chest pain. Mildly confused. Review of Systems General: No Chills, No Night Sweats; Fatigue, Malaise; No Appetite, No Other HEENT: No Head Aches, No Visual Changes, No Eye Pain, No Ear Pain, No Dysphasia, No Sinus Congestion, No Post Nasal Drip, No Sore Throat, No Other Pulmonary: No Dyspnea, No Cough, No Pleuritic Chest Pain, No Other Cardiovascular: No: Chest Pain, Palpitations, Orthopnea, Paroxysmal Noc. Dyspnea, Edema, Lt Headedness, Other Objective-Cardiology Exam Last Set of Vital Signs Vital Signs 06/07/21 06/07/21 12:00 13:00 Temp 36.6 Pulse 76 Resp 18 B/P (MAP) 195/85 Pulse Ox 95 O2 Delivery Nasal Cannula O2 Flow Rate 2.00 I&O Intake and Output 06/07/21 00:00 Intake Total 500 ml Output Total 1676 ml Balance -1176 ml Intake Oral 500 ml Output Urine Total 1675 ml Stool Total 1 ml General: Alert, Cooperative HEENT: Atraumatic, PERRLA Neck: Supple, No JVD, No Thyromegaly Lungs: Clear to Auscultation, Normal Air Movement Heart: Regular Rate, Normal S1, Normal S2, Other (Systolic murmur at the left sternal border) Abdomen: Normal Bowel Sounds, Soft, No Tenderness, No Hepatosplenomegaly, No Masses Extremities: No Clubbing, No Cyanosis, No Edema, Normal Pulses, No Tenderness/Swelling Skin: No Rashes, No Breakdown, No Significant Lesion Neuro: Normal Gait, Normal Speech, Strength at 5/5 X4 Ext, Normal Tone, Sensation Intact Psych/Mental Status: Mental Status NL, Mood NL Results Lab Laboratory Tests 06/07/21 05:42 A/P-Cardiology Admission Diagnosis Chest pain Paroxysmal atrial fibrillation Coronary artery disease Hypertension Assessment/Plan Chest pain nonspecific etiology, resembling angina, improved. Cardiac catheterization done in July 2018 showed occluded distal right PDA very small artery not amendable to intervention with mild coronary artery disease otherwise. Cardiac catheterization done on September 26, [address] Fortune reporting mild coronary artery disease nonobstructive disease, Stress test was done on June 06, 2021 showing no significant ischemia or infarction reported by Dr. Kraus Conservative management is recommended Paroxysmal atrial fibrillation, have a loop recorder implanted in September 2018. Has multiple short episodes of atrial fibrillation, Was hospitalized with bradycardia subsequently flecainide was discontinued, had a loop monitor showing multiple episodes of atrial fibrillation. Transient bradycardia, currently asymptomatic, could be related to her chest pain, will continue monitoring and if she had any persistent bradycardia or sinus pauses we will consider a pacemaker. Right bundle branch block with left anterior fascicular block, reported transient episode of left bundle branch block, has underlying first-degree AV block, consideration for pacemaker if patient became symptomatic Hypertension, controlled, continue to monitor. Status post hospitalization in April 2019 at [facility] for possible seizure and she was started on Keppra. No follow-up was made, I made her an appo intment with Dr. Екатерина Brewster at [facility] on August 11. Hyperlipidemia, Continue to monitor lipid Echocardiogram done in December 2020 showed normal left ventricular size with ejection fraction 45-50 percent, left atrial dilatation measuring 4.54 cm, moderate mitral regurgitation, mild aortic valve stenosis, moderate aortic regurgitation, estimated pulmonary artery pressure of 25mmHg. Mild bilateral carotid stenosis, last ultrasound was done in Feb 2020, continue to monitor. Depression, maintained on antidepressant Hypothyroidism managed by primary care physician History of stroke in the past, questionable carotid stenosis. Bronchial asthma. History of cholecystectomy, appendectomy, hysterectomy, tonsillectomy, tubal ligation, ovarian cyst removal. SARAH PAK MD Jun 07, 2021 14:00
--- NOTE | 2021-06-07 20:27 | Discharge Summary ---
Discharge Summary Hospital Course Was the Problem List Reviewed?: Yes Problems/Dx: (1) Troponin level elevated (2) Coronary artery disease with unstable angina pectoris (3) Left bundle branch block (4) Paroxysmal atrial fibrillation (5) Aortic stenosis (6) Mitral regurgitation (7) Primary hypertension (8) Mixed hyperlipidemia Hospital Course Date of Admission: Jun 04, 2021 at 16:48 Admission Diagnosis : NSTEMI Family Physician/Provider: Giovanna,Local Physician Date of Discharge: 06/07/21 Discharge Diagnosis: Bradycardia, elevated troponin, CAD, dementia Hospital Course: Concha Hyde is an 80 year old female with PMH HTN, HLD, AFib, dementia, who was transferred from [facility] with NSTEMI. She was having chest pressure. Her troponin was mildly elevated. Cardiology was consulted and assisted with her care. Her troponin remained stable, slightly elevated. She underwent a stress test which was unremarkable. She had issues with dementia with behavioral disturbances. She was requiring a small amount of oxygen during her stay, but an oxygen evaluation revealed no oxygen need at discharge. Her chest xray showed some atelectasis and hilar fullness. Follow up CT was ordered to confirm resolution and to further evaluate these findings. She had issues with bradycardia with LBBB an RBBB. Her Flecainide was held and discontinued. Her heart rates improved. Cardiology recommended conservative medical management for her conditions. She was continued on Eliquis. She was a bit debilitated and home health was recommended. She was discharged in stable condition. Labs and Pending Lab Test: Laboratory Tests 06/07/21 05:42: White Blood Count 9.6, Red Blood Count 3.95, Hemoglobin 11.6, Hematocrit 36, Mean Corpuscular Volume 91, Mean Corpuscular Hemoglobin 29, Mean Corpuscular Hemoglobin Concent 32, Red Cell Distribution Width 13.1, Platelet Count 241, Mean Platelet Volume 10.8, Immature Granulocyte % (Auto) 0, Neutrophils (%) (Auto) 77H, Lymphocytes (%) (Auto) 12, Monocytes (%) (Auto) 9, Eosinophils (%) (Auto) 1, Basophils (%) (Auto) 0, Neutrophils # (Auto) 7.4, Lymphocytes # (Auto) 1.2, Monocytes # (Auto) 0.9, Eosinophils # (Auto) 0.1, Basophils # (Auto) 0.0, Immature Granulocyte # (Auto) 0.0, Sodium Level 135, Potassium Level 3.8, Chloride Level 103, Carbon Dioxide Level 24, Anion Gap 8, Blood Urea Nitrogen 13, Creatinine 0.89, Estimat Glomerular Filtration Rate 61, BUN/Creatinine Ratio 15, Glucose Level 95, Calcium Level 7.9L, Corrected Calcium 8.5, Total Bilirubin 1.0, Aspartate Amino Transf (AST/SGOT) 38H, Alanine Aminotransferase (ALT/SGPT) 21, Alkaline Phosphatase 87, Total Protein 6.0L, Albumin 3.2 Home Meds Active Amlodipine Besylate 10 Mg Tablet 10 Mg PO DAILY 30 Days Reported Pantoprazole Sodium 40 Mg Tablet.dr 40 Mg PO DAILY Donepezil HCl 10 Mg Tablet 5 Mg PO HS Amitriptyline HCl 25 Mg Tablet 25 Mg PO HS Sertraline HCl 100 Mg Tablet 50 Mg PO DAILY Isosorbide Mononitrate ER (Isosorbide Mononitrate) 30 Mg Tab.er.24h 30 Mg PO DAILY Flecainide Acetate 50 Mg Tablet 50 Mg PO BID Benadryl (Diphenhydramine HCl) 25 Mg Capsule 25-50 Mg PO HS PRN Eliquis (Apixaban) 5 Mg Tablet 5 Mg PO BID Losartan Potassium 100 Mg Tablet 100 Mg PO DAILY Montelukast Sodium 10 Mg Tablet 10 Mg PO HS Isosorbide Mononitrate ER (Isosorbide Mononitrate) 60 Mg Tab 60 Mg PO DAILY Levetiracetam 500 Mg Tablet 500 Mg PO HS Tums (Calcium Carbonate) 200 Mg Tab.chew 1 Tab PO TID PRN Atorvastatin Calcium 40 Mg Tablet 40 Mg PO HS Levothyroxine Sodium 100 Mcg Tablet 100 Mcg PO DAILY Assessment/Pt Instructions Take medications as prescribed. Follow up with your PCP and Cardiology. Return with worsening chest pain, shortness of breath, or if you feel like you are getting worse. Discharge Planning: >30 minutes discharge planning Discharge Instructions Discharge Diet: Low Sodium Diet Activity as Tolerated: Yes Consultations Cardiology Discharge Physical Examination Vital Signs Vital Signs Date Time Temp Pulse Resp B/P (MAP) Pulse Ox O2 Delivery O2 Flow Rate FiO2 06/07/21 15:21 37.0 67 21 146/63 95 Nasal Cannula 2.00 General Appearance: No Apparent Distress, Chronically ill Respiratory: Lungs Clear, Normal Breath Sounds, No Respiratory Distress Cardiovascular: Regular Rate, Rhythm, Systolic Murmur Gastrointestinal: Normal Bowel Sounds, Non Tender, Soft Extremity: Normal Inspection, Non Tender, No Pedal Edema Skin: Normal Color, Warm/Dry Neurologic/Psychiatric: Alert, Normal Mood/Affect Allergies: Coded Allergies: Penicillins (Verified Allergy, Severe, 07/10/18) SEIZURE morphine (Verified Allergy, Severe, 07/10/18) SEIZURE Discharge Summary Date of Admission Jun 04, 2021 at 16:48 Date of Discharge Discharge Date: Jun 07, 2021 Discharge Time: 12:00 Admission Diagnosis NSTEMI Consults/Procedures Consulations Cardiology Procedures Stress test Discharge Diagnosis NSTEMI Left bundle branch block Right bundle branch block Bradycardia CAD HTN HLD AFib Dementia Delirium (1) Troponin level elevated (2) Coronary artery disease with unstable angina pectoris (3) Left bundle branch block (4) Paroxysmal atrial fibrillation (5) Aortic stenosis (6) Mitral regurgitation (7) Primary hypertension (8) Mixed hyperlipidemia (9) Dementia Status: Chronic ЮЛИЯ STOVER MD Jun 07, 2021 20:22
[2021-06-07] MEDS: APIXABAN 5 MG (ELIQUIS) TABLET PO SCH (21:01)
[2021-06-07] MEDS: MONTELUKAST 10 MG (SINGULAIR) TAB PO SCH (21:01)
[2021-06-08] MEDS: PANTOPRAZOLE 40 MG (PROTONIX) TAB PO SCH (04:49)
[2021-06-08] MEDS: ACETAMINOPHEN 325 MG TABLET PO PRN (04:50)
[2021-06-08] MEDS: ISOSORBIDE MONONITRATE 60 MG (IMDUR) TAB PO SCH (07:54)
[2021-06-08] MEDS: LOSARTAN 100 MG (COZAAR) TABLET PO SCH (07:54)
[2021-06-08] MEDS: SERTRALINE 100 MG (ZOLOFT) TAB PO SCH (07:55)
[2021-06-08] MEDS: APIXABAN 5 MG (ELIQUIS) TABLET PO SCH ×2 (07:55→19:45)
[2021-06-08] MEDS: LEVOTHYROXINE 100 MCG (LEVOTHROID) TAB PO SCH (07:55)
[2021-06-08] MEDS: amLODIPine 10 MG (NORVASC) TAB PO SCH (07:55)
--- NOTE | 2021-06-08 09:24 | Cardiology Progress Note ---
Subjective Date Seen by Provider: Jun 08, 2021 Time Seen by Provider: 08:30 Subjective/Events-last exam Patient is in bed, denies any dizziness or lightheadedness. Denies any further chest pain. Review of Systems General: No Chills, No Night Sweats; Fatigue; No Malaise, No Appetite, No Other HEENT: No Head Aches, No Visual Changes, No Eye Pain, No Ear Pain, No Dysphasia, No Sinus Congestion, No Post Nasal Drip, No Sore Throat, No Other Pulmonary: No Dyspnea, No Cough, No Pleuritic Chest Pain, No Other Cardiovascular: No: Chest Pain, Palpitations, Orthopnea, Paroxysmal Noc. Dyspnea, Edema, Lt Headedness, Other Objective-Cardiology Exam Last Set of Vital Signs Vital Signs 06/08/21 12:00 Temp 36.9 Pulse 79 Resp 20 B/P (MAP) 139/73 Pulse Ox 93 O2 Delivery Nasal Cannula O2 Flow Rate 2.00 I&O Intake and Output 06/08/21 00:00 Intake Total 1350 ml Output Total 2171 ml Balance -821 ml Intake Oral 1350 ml Output Urine Total 2170 ml Stool Total 1 ml General: Alert, Cooperative HEENT: Atraumatic, PERRLA Neck: Supple, No JVD, No Thyromegaly Lungs: Clear to Auscultation, Normal Air Movement Heart: Regular Rate, Normal S1, Normal S2, Other (Systolic murmur at the left sternal border) Abdomen: Normal Bowel Sounds, Soft, No Tenderness, No Hepatosplenomegaly, No Masses Extremities: No Clubbing, No Cyanosis, No Edema, Normal Pulses, No Tenderness/Swelling Skin: No Rashes, No Breakdown, No Significant Lesion Neuro: Normal Gait, Normal Speech, Strength at 5/5 X4 Ext, Normal Tone, Sensation Intact Psych/Mental Status: Mental Status NL, Mood NL A/P-Cardiology Admission Diagnosis Chest pain Paroxysmal atrial fibrillation Coronary artery disease Hypertension Assessment/Plan Chest pain nonspecific etiology, resembling angina, improved. Cardiac catheterization done in July 2018 showed occluded distal right PDA very small artery not amendable to intervention with mild coronary artery disease otherwise. Cardiac catheterization done on September 26, [address] Fortune reporting mild coronary artery disease nonobstructive disease, Stress test was done on June 06, 2021 showing no significant ischemia or infarction reported by Dr. Kraus Conservative management is recommended Paroxysmal atrial fibrillation, have a loop recorder implanted in September 2018. Has multiple short episodes of atrial fibrillation, Was hospitalized with bradycardia subsequently flecainide was discontinued, had a loop monitor showing multiple episodes of atrial fibrillation. Transient bradycardia, currently asymptomatic, could be related to her chest pain, will continue monitoring and if she had any persistent bradycardia or sinus pauses we will consider a pacemaker. Right bundle branch block with left anterior fascicular block, reported transient episode of left bundle branch block, has underlying first-degree AV block, consideration for pacemaker if patient became symptomatic Hypertension, controlled, continue to monitor. Status post hospitalization in April 2019 at [facility] for possible seizure and she was started on Keppra. No follow-up was made, I made her an appointment with Dr. Екатерина Brewster at [facility] on August 11. Hyperlipidemia, Continue to monitor lipid Echocardiogram done in December 2020 showed normal left ventricular size with ejection fraction 45-50 percent, left atrial dilatation measuring 4.54 cm, moderate mitral regurgitation, mild aortic valve stenosis, moderate aortic regurgitation, estimated pulmonary artery pressure of 25mmHg. Mild bilateral carotid stenosis, last ultrasound was done in Feb 2020, continue to monitor. Depression, maintained on antidepressant Hypothyroidism managed by primary care physician History of stroke in the past, questionable carotid stenosis. Bronchial asthma. History of cholecystectomy, appendectomy, hysterectomy, tonsillectomy, tubal ligation, ovarian cyst removal. Supervisory-Addendum Brief Supervisory Addendum Participated in pt care: history, MDM, physical Personally performed: exam, history, MDM Care discussed with: FRANCI Results interpretation: Verified all documentation Notes: Patient was seen and evaluated with Rekha, examination performed, management plan was discussed, agree with the current scribed note, I made few changes to the note using Italic font Patient was seen at bedside, laying down comfortably, feeling better We discussed discharge planning and arrangement to go for shelter Continue to monitor heart rate and blood pressure REKHA NICHOLS Jun 08, 2021 09:23 SARAH PAK MD Jun 08, 2021 13:37
--- NOTE | 2021-06-08 11:39 | Occupational Ther Daily Note ---
OT Current Status-Daily Note Subjective Pt alert, sitting in recliner. Slight confusion noted with following directions and safety awareness. Pt agrees to therapy. No c/o pain. Mental Status/Objective Patient Orientation: Person, Place, Time, Situation Attachments: IV, Oxygen ADL-Treatment Pt ambulation without AD and CGA for safety. Pt able to stand at sink and wash upper body and sunday area/buttock then complete oral care with SBA for safety. After session, pt sitting in recliner with call light/phone in reach. All needs met in room. All needs met in room. Therapy Code Descriptions/Definitions Functional [place] Measure: 0=Not Assessed/NA 4=Minimal Assistance 1=Total Assistance 5=Supervision or Setup 2=Maximal Assistance 6=Modified [place] 3=Moderate Assistance 7=Complete IndependenceSCALE: Activities may be completed with or without assistive devices. 1-Mvqzwodsxo-ciqzufe completes the activity by him/herself with no assistance from a helper. 5-Set-up or Clean-up Assistance-helper sets up or cleans up; patient completes activity. [place] assists only prior to or following the activity. 4-Supervision or Touching Assistance-helper provides verbal cues and/or touching/steadying and/or contact guard assistance as patient completes activity. Assistance may be provided throughout the activity or intermittently. 3-Partial/Moderate Assistance-helper does LESS THAN HALF the effort. [place] lifts, holds or supports trunk or limbs, but provides less than half the effort. 2-Substantial/Maximal Assistance-helper does MORE THAN HALF the effort. [place] lifts or holds trunk or limbs and provides more than half the effort. 5-Npvtglade-ijdepj does ALL the effort. Patient does none of the effort to complete the activity. Or, the assistance of 2 or more helpers is required for the patient to complete the activity. If activity was not attempted, code reason: 7-Patient Refused. 9-Not Applicable-not attempted and the patient did not perform the activity before the current illness, exacerbation or injury. 10-Not Attempted due to Environmental Limitations-(lack of equipment, weather restraints, etc.). 88-Not Attempted due to Medical Conditions or Safety Concerns. Oral Hygiene (QC): 4 OT Washery Boss Goals [facility] Goals Time Frame: Jun 17, 2021 Eating (QC): 6 Oral Hygiene (QC): 6 Toileting Hygiene (QC): 6 Shower/Bathe Self (QC): 4 Upper Body Dressing (QC): 5 Lower Body Dressing (QC): 4 On/Off Footwear (QC): 4 Additional Goals: 1-Demonstrate ADL Tasks, 2-Verbalize Understanding, 3- ImproveStrength/Bev 1=Demonstrate adherence to instructed precautions during ADL tasks. 2=Patient will verbalize/demonstrate understanding of assistive devices/modifications for ADL. 3=Patient will improve strength/tolerance for activity to enable patient to perform ADL's. OT Education/Plan Problem List/Assessment Assessment: Decreased Activ Tolerance, Decreased Safety Aware, Impaired Cognition, Impaired Self-Care Skills Discharge Recommendations Plan/Recommendations: Continue POC Treatment Plan/Plan of Care Patient would benefit from OT for education, treatment and training to promote independence in ADL's, mobility, safety and/or upper extremity function for ADL's. Plan of Care: ADL Retraining, Functional Mobility, UE Funct Exercise/Act Treatment Duration: Jun 17, 2021 Frequency: 3 times per week (3-5 times per week) Rehab Potential: Fair Time/GCodes Start Time: 11:14 Stop Time: 11:30 Total Time Billed (hr/min): 16 Billed Treatment Time 1 visit-ADL 1 (16 min) PABLO GUEVARA Jun 08, 2021 11:39
--- NOTE | 2021-06-08 14:36 | Physical Therapy Daily Note ---
PT Daily Note-Current Subjective Pt laying Supine in bed visiting with sister upon arrival. Pt agrees to amb. in hallway. Pain Location: No Pain Reported Mental Status Patient Orientation: Person, Place, Situation Attachments: Oxygen (2L), Tang Catheter Transfers SCALE: Activities may be completed with or without assistive devices. 2-Nxcvwszcor-bvarwpd completes the activity by him/herself with no assistance from a helper. 5-Set-up or Clean-up Assistance-helper sets up or cleans up; patient completes activity. [place] assists only prior to or following the activity. 4-Supervision or Touching Assistance-helper provides verbal cues and/or touching/steadying and/or contact guard assistance as patient completes a ctivity. Assistance may be provided throughout the activity or intermittently. 3-Partial/Moderate Assistance-helper does LESS THAN HALF the effort. [place] lifts, holds or supports trunk or limbs, but provides less than half the effort. 2-Substantial/Maximal Assistance-helper does MORE THAN HALF the effort. [place] lifts or holds trunk or limbs and provides more than half the effort. 8-Pdxjlrvgh-cgjzzc does ALL the effort. Patient does none of the effort to complete the activity. Or, the assistance of 2 or more helpers is required for the patient to complete the activity. If activity was not attempted, code reason: 7-Patient Refused. 9-Not Applicable-not attempted and the patient did not perform the activity before the current illness, exacerbation or injury. 10-Not Attempted due to Environmental Limitations-(lack of equipment, weather restraints, etc.). 88-Not Attempted due to Medical Conditions or Safety Concerns. Sit to Lying (QC): 5 Lying to Sitting/Side of Bed(Q: 4 Sit to Stand (QC): 4 Weight Bearing Full Weight Bearing Full Weight Bearing Gait Training Does the Patient Walk?: Yes Distance: 250' Walk 10 feet (QC): 4 Walk 50 ft with 2 Turns(QC): 4 Walk 150 ft (QC): 4 Gait Persons Needed: 1 Gait Assistive Device: FWW Treatments Pt TF to EOB then stands before amb. in hallway. Pt takes one standing RB as needed during amb. Pt returns to room to rest in bed at end of tx. All needs met, call light in hand. Assessment Current Status: Good Progress Pt needs a little assist to get to EOB but is able to amb. well in hallway. PT Medical Chief Technician Goals Medical Chief Technician Goals PT Intermediate Goals Time Frame: Jun 18, 2021 Roll Left & Right (QC): 6 Sit to Lying (QC): 6 Lying-Sitting on Side/Bed(QC): 6 Sit to Stand (QC): 6 Chair/Pjf-ot-Fclhs Xfer(QC): 6 Toilet Transfer (QC): 6 Walk 10 feet (QC): 6 Walk 50ft with 2 Turns (QC): 6 Walk 150 ft (QC): 6 PT Plan Problem List Problem List: Activity Tolerance Treatment/Plan Treatment Plan: Continue Plan of Care Treatment Plan: Bed Mobility, Education, Functional Activity Bev, Functional Strength, Gait, Safety, Therapeutic Exercise, Transfers Treatment Duration: Jun 18, 2021 Frequency: 6 times per week Estimated Hrs Per Day: .25 hour per day Patient and/or Family Agrees t: Yes Safety Risks/Education Patient Education: Gait Training, Transfer Techniques, Correct Positioning, Safety Issues Teaching Recipient: Patient Teaching Methods: Discussion Response to Teaching: Verbalize Understanding Time/GCodes Time In: 1322 Time Out: 1338 Total Billed Treatment Time: 16 Total Billed Treatment 1, GT (16m) BERT SHELDON PTA Jun 08, 2021 14:36
[2021-06-08] MEDS: MONTELUKAST 10 MG (SINGULAIR) TAB PO SCH (19:45)
[2021-06-08] MEDS: MELATONIN 3 MG TABLET PO PRN (19:45)
[2021-06-09] MEDS: PANTOPRAZOLE 40 MG (PROTONIX) TAB PO SCH (05:58)
--- NOTE | 2021-06-09 08:11 | Cardiology Progress Note ---
Subjective Date Seen by Provider: Jun 09, 2021 Time Seen by Provider: 08:09 Subjective/Events-last exam Patient was seen at bedside, sitting comfortably, no new complaint. Review of Systems General: No Chills, No Night Sweats, No Fatigue, No Malaise, No Appetite, No Other HEENT: No Head Aches, No Visual Changes, No Eye Pain, No Ear Pain, No Dysphasia, No Sinus Congestion, No Post Nasal Drip, No Sore Throat, No Other Pulmonary: No Dyspnea, No Cough, No Pleuritic Chest Pain, No Other Cardiovascular: No: Chest Pain, Palpitations, Orthopnea, Paroxysmal Noc. Dyspnea, Edema, Lt Headedness, Other Objective-Cardiology Exam Last Set of Vital Signs Vital Signs 06/09/21 04:10 Temp 36.1 Pulse 83 Resp 18 B/P (MAP) 157/61 Pulse Ox 96 O2 Delivery Nasal Cannula O2 Flow Rate 2.00 I&O Intake and Output 06/09/21 00:00 Intake Total 890 ml Output Total 1650 ml Balance -760 ml Intake Oral 890 ml Output Urine Total 1650 ml General: Alert, Cooperative HEENT: Atraumatic, PERRLA Neck: Supple, No JVD, No Thyromegaly Lungs: Clear to Auscultation, Normal Air Movement Heart: Regular Rate, Normal S1, Normal S2, Other (Systolic murmur at the left sternal border) Abdomen: Normal Bowel Sounds, Soft, No Tenderness, No Hepatosplenomegaly, No Masses Extremities: No Clubbing, No Cyanosis, No Edema, Normal Pulses, No Tenderne ss/Swelling Skin: No Rashes, No Breakdown, No Significant Lesion Neuro: Normal Gait, Normal Speech, Strength at 5/5 X4 Ext, Normal Tone, Sensation Intact Psych/Mental Status: Mental Status NL, Mood NL A/P-Cardiology Admission Diagnosis Chest pain Paroxysmal atrial fibrillation Coronary artery disease Hypertension Assessment/Plan Chest pain nonspecific etiology, resembling angina, improved. Cardiac catheterization done in July 2018 showed occluded distal right PDA very small artery not amendable to intervention with mild coronary artery disease otherwise. Cardiac catheterization done on September 26, [address] Fortune reporting mild coronary artery disease nonobstructive disease, Stress test was done on June 06, 2021 showing no significant ischemia or infarction reported by Dr. Kraus Conservative management is recommended Paroxysmal atrial fibrillation, have a loop recorder implanted in September 2018. Has multiple short episodes of atrial fibrillation, Was hospitalized with bradycardia subsequently flecainide was discontinued, had a loop monitor showing multiple episodes of atrial fibrillation. Transient bradycardia, currently asymptomatic, could be related to her chest pain, will continue monitoring and if she had any persistent bradycardia or sinus pauses we will consider a pacemaker. Right bundle branch block with left anterior fascicular block, reported transient episode of left bundle branch block, has underlying first-degree AV block, consideration for pacemaker if patient became symptomatic Hypertension, controlled, continue to monitor. Status post hospitalization in April 2019 at [facility] for possible seizure and she was started on Keppra. No follow-up was made, I made her an appointment with Dr. Екатерина Brewster at [facility] on August 11. Hyperlipidemia, Continue to monitor lipid Echocardiogram done in December 2020 showed normal left ventricular size with ejection fraction 45-50 percent, left atrial dilatation measuring 4.54 cm, moderate mitral regurgitation, mild aortic valve stenosis, moderate aortic regurgitation, estimated pulmonary artery pressure of 25mmHg. Mild bilateral carotid stenosis, last ultrasound was done in Feb 2020, continue to monitor. Depression, maintained on antidepressant Hypothyroidism managed by primary care physician History of stroke in the past, questionable carotid stenosis. Bronchial asthma. History of cholecystectomy, appendectomy, hysterectomy, tonsillectomy, tubal ligation, ovarian cyst removal. Okay for discharge and follow-up as an outpatient SARAH PAK MD Jun 09, 2021 08:11
[2021-06-09] MEDS: APIXABAN 5 MG (ELIQUIS) TABLET PO SCH ×2 (09:17→20:17)
[2021-06-09] MEDS: amLODIPine 10 MG (NORVASC) TAB PO SCH (09:17)
[2021-06-09] MEDS: LEVOTHYROXINE 100 MCG (LEVOTHROID) TAB PO SCH (09:18)
[2021-06-09] MEDS: LOSARTAN 100 MG (COZAAR) TABLET PO SCH (09:18)
[2021-06-09] MEDS: ISOSORBIDE MONONITRATE 60 MG (IMDUR) TAB PO SCH (09:18)
[2021-06-09] MEDS: SERTRALINE 100 MG (ZOLOFT) TAB PO SCH (09:24)
--- NOTE | 2021-06-09 10:39 | Physical Therapy Daily Note ---
PT Daily Note-Current Subjective Patient agrees to PT. Son present. Mental Status Patient Orientation: Person, Time Attachments: Oxygen, Tang Catheter Transfers SCALE: Activities may be completed with or without assistive devices. 9-Yrmovhycdv-xqjpzgo completes the activity by him/herself with no assistance from a helper. 5-Set-up or Clean-up Assistance-helper sets up or cleans up; patient completes activity. [place] assists only prior to or following the activity. 4-Supervision or Touching Assistance-helper provides verbal cues and/or touching/steadying and/or contact guard assistance as patient completes activity. Assistance may be provided throughout the activity or intermittently. 3-Partial/Moderate Assistance-helper does LESS THAN HALF the effort. [place] lifts, holds or supports trunk or limbs, but provides less than half the effort. 2-Substantial/Maximal Assistance-helper does MORE THAN HALF the effort. [place] lifts or holds trunk or limbs and provides more than half the effort. 6-Vimjaunst-rxmmlb does ALL the effort. Patient does none of the effort to complete the activity. Or, the assistance of 2 or more helpers is required for the patient to complete the activity. If activity was not attempted, code reason: 7-Patient Refused. 9-Not Applicable-not attempted and the patient did not perform the activity before the current illness, exacerbation or injury. 10-Not Attempted due to Environmental Limitations-(lack of equipment, weather restraints, etc.). 88-Not Attempted due to Medical Conditions or Safety Concerns. Lying to Sitting/Side of Bed(Q: 4 Sit to Stand (QC): 4 Chair/Gyd-zt-Mpaqk Xfer(QC): 4 CGA for safety Weight Bearing Full Weight Bearing Full Weight Bearing Gait Training Does the Patient Walk?: Yes Distance: 225' Walk 10 feet (QC): 4 Walk 50 ft with 2 Turns(QC): 4 Walk 150 ft (QC): 4 Gait Assistive Device: FWW slow, steady, slightly antalgic due to right foot pain (not rated)/VC's for body placement in FWW Exercises Seated Therapy Exercises: Long arc quads Seated Reps: 12 Assessment Patient up in recliner with needs met. Warm blanket placed on right foot for comfort. Continue to increase activity as tolerated by patient. PT Professor Of Theatre Goals Care Home Goals PT Care Home Goals Time Frame: Jun 18, 2021 Roll Left & Right (QC): 6 Sit to Lying (QC): 6 Lying-Sitting on Side/Bed(QC): 6 Sit to Stand (QC): 6 Chair/Sch-oy-Xpthv Xfer(QC): 6 Toilet Transfer (QC): 6 Walk 10 feet (QC): 6 Walk 50ft with 2 Turns (QC): 6 Walk 150 ft (QC): 6 PT Plan Treatment/Plan Treatment Plan: Continue Plan of Care Treatment Plan: Bed Mobility, Education, Functional Activity Bev, Functional Strength, Gait, Safety, Therapeutic Exercise, Transfers Treatment Duration: Jun 18, 2021 Frequency: 6 times per week Estimated Hrs Per Day: .25 hour per day Patient and/or Family Agrees t: Yes Time/GCodes Time In: 956 Time Out: 1011 Total Billed Treatment Time: 15 Total Billed Treatment 1 visit GT 15 min PRICE DE LA ROSA PT Jun 09, 2021 10:39
--- NOTE | 2021-06-09 11:39 | Occupational Ther Daily Note ---
OT Current Status-Daily Note Subjective Pt alert, lying in bed. Pt agrees to therapy reluctantly stating that she had just gotten into bed. Pt c/o shldr and arm pain, pt stated that this happens anytime that she moves. Mental Status/Objective Patient Orientation: Person, Place, Time, Situation Attachments: Tang Catheter, IV ADL-Treatment Supine to EOB with CGA due to shldr/arm pain. Pt ambulates using FWW with SBA for safety. Pt states that she has taken a sponge bath and oral care this morning, per notes she has not completed this. Pt requires pc/vc for safe transfer onto/off of toilet. Pt stops beside toilet, reaches for grabbar and butt dives onto toilet instead of safe transfer tech. Pt unable to complete clothing manipulation and has clothing under her when she sits on toilet. Pt is able to complete hygiene by self. Pt stood at sink to complete sunday care and cleanse buttocks then washes hands with SBA. Declines oral care. Pt ambulates to recliner using FWW, pt attempts to butt dive onto recliner, pc/vc needed for safe transfers. Pt sits on recliner and is able to don/doff socks by self. After session, pt sitting in recliner with feet elevated. Call light/phone in reach. Son present in room. All needs met. Therapy Code Descriptions/Definitions Functional [place] Measure: 0=Not Assessed/NA 4=Minimal Assistance 1=Total Assistance 5=Supervision or Setup 2=Maximal Assistance 6=Modified [place] 3=Moderate Assistance 7=Complete IndependenceSCALE: Activities may be completed with or without assistive devices. 5-Nqrrdbcvno-xtmjmmi completes the activity by him/herself with no assistance from a helper. 5-Set-up or Clean-up Assistance-helper sets up or cleans up; patient completes activity. [place] assists only prior to or following the activity. 4-Supervision or Touching Assistance-helper provides verbal cues and/or touching/steadying and/or contact guard assistance as patient completes activity. Assistance may be provided throughout the activity or intermittently. 3-Partial/Moderate Assistance-helper does LESS THAN HALF the effort. [place] lifts, holds or supports trunk or limbs, but provides less than half the effort. 2-Substantial/Maximal Assistance-helper does MORE THAN HALF the effort. [place] lifts or holds trunk or limbs and provides more than half the effort. 4-Vfrkqjmyp-ohjtpc does ALL the effort. Patient does none of the effort to complete the activity. Or, the assistance of 2 or more helpers is required for the patient to complete the activity. If activity was not attempted, code reason: 7-Patient Refused. 9-Not Applicable-not attempted and the patient did not perform the activity before the current illness, exacerbation or injury. 10-Not Attempted due to Environmental Limitations-(lack of equipment, weather restraints, etc.). 88-Not Attempted due to Medical Conditions or Safety Concerns. On/Off Footwear: 6 OT Retirement Goals Retirement Goals Time Frame: Jun 17, 2021 Eating (QC): 6 Oral Hygiene (QC): 6 Toileting Hygiene (QC): 6 Shower/Bathe Self (QC): 4 Upper Body Dressing (QC): 5 Lower Body Dressing (QC): 4 On/Off Footwear (QC): 4 Additional Goals: 1-Demonstrate ADL Tasks, 2-Verbalize Understanding, 3- ImproveStrength/Bev 1=Demonstrate adherence to instructed precautions during ADL tasks. 2=Patient will verbalize/demonstrate understanding of assistive devices/modifications for ADL. 3=Patient will improve strength/tolerance for activity to enable patient to perform ADL's. OT Education/Plan Problem List/Assessment Assessment: Decreased Safety Aware, Impaired Cognition, Impaired Self-Care Skills Discharge Recommendations Plan/Recommendations: Continue POC Treatment Plan/Plan of Care Patient would benefit from OT for education, treatment and training to promote independence in ADL's, mobility, safety and/or upper extremity function for ADL's. Plan of Care: ADL Retraining, Functional Mobility, UE Funct Exercise/Act Treatment Duration: Jun 17, 2021 Frequency: 3 times per week (3-5 times per week) Rehab Potential: Fair Time/GCodes Start Time: 10:49 Stop Time: 11:17 Total Time Billed (hr/min): 28 Billed Treatment Time 1 visit-ADL 2 (28 min) PABLO GUEVARA Jun 09, 2021 11:39
[2021-06-09] MEDS: ACETAMINOPHEN 325 MG TABLET PO PRN (17:19)
[2021-06-09] MEDS: MELATONIN 3 MG TABLET PO PRN (20:18)
[2021-06-09] MEDS: MONTELUKAST 10 MG (SINGULAIR) TAB PO SCH (20:18)
[2021-06-10] MEDS: PANTOPRAZOLE 40 MG (PROTONIX) TAB PO SCH (06:42)
[2021-06-10] MEDS: LOSARTAN 100 MG (COZAAR) TABLET PO SCH (08:18)
[2021-06-10] MEDS: APIXABAN 5 MG (ELIQUIS) TABLET PO SCH (08:18)
[2021-06-10] MEDS: amLODIPine 10 MG (NORVASC) TAB PO SCH (08:18)
[2021-06-10] MEDS: ISOSORBIDE MONONITRATE 60 MG (IMDUR) TAB PO SCH (08:18)
[2021-06-10] MEDS: LEVOTHYROXINE 100 MCG (LEVOTHROID) TAB PO SCH (08:18)
[2021-06-10] MEDS: SERTRALINE 100 MG (ZOLOFT) TAB PO SCH (08:26)
--- NOTE | 2021-06-10 11:56 | Cardiology Progress Note ---
Subjective Date Seen by Provider: Jun 10, 2021 Time Seen by Provider: 11:55 Subjective/Events-last exam Patient was seen at bedside, sitting comfortably, no new complaints Review of Systems General: No Chills, No Night Sweats; Fatigue; No Malaise, No Appetite, No Other HEENT: No Head Aches, No Visual Changes, No Eye Pain, No Ear Pain, No Dysphasia, No Sinus Congestion, No Post Nasal Drip, No Sore Throat, No Other Pulmonary: No Dyspnea, No Cough, No Pleuritic Chest Pain, No Other Cardiovascular: No: Chest Pain, Palpitations, Orthopnea, Paroxysmal Noc. Dyspnea, Edema, Lt Headedness, Other Objective-Cardiology Exam Last Set of Vital Signs Vital Signs 06/09/21 06/10/21 06/10/21 09:00 08:00 09:00 Temp 37.2 Pulse 79 Resp 20 B/P (MAP) 159/71 Pulse Ox 89 O2 Delivery Room Air O2 Flow Rate 2.00 I&O Intake and Output 06/10/21 00:00 Intake Total 1290 ml Output Total 2035 ml Balance -745 ml Intake Oral 1290 ml Output Urine Total 2035 ml General: Alert, Cooperative HEENT: Atraumatic, PERRLA Neck: Supple, No JVD, No Thyromegaly Lungs: Clear to Auscultation, Normal Air Movement Heart: Regular Rate, Normal S1, Normal S2, Other (Systolic murmur at the left sternal border) Abdomen: Normal Bowel Sounds, Soft, No Tenderness, No Hepatosplenomegaly, No Masses Extremities: No Clubbing, No Cyanosis, No Edema, Normal Pulses, No Tenderness/Swelling Skin: No Rashes, No Breakdown, No Significant Lesion Neuro: Normal Gait, Normal Speech, Strength at 5/5 X4 Ext, Normal Tone, Sensation Intact Psych/Mental Status: Mental Status NL, Mood NL A/P-Cardiology Admission Diagnosis Chest pain Paroxysmal atrial fibrillation Coronary artery disease Hypertension Assessment/Plan Chest pain nonspecific etiology, resembling angina, improved. Cardiac catheterization done in July 2018 showed occluded distal right PDA very small artery not amendable to intervention with mild coronary artery disease otherwise. Cardiac catheterization done on September 26, [address] Fortune reporting mild coronary artery disease nonobstructive disease, Stress test was done on June 06, 2021 showing no significant ischemia or infarction reported by Dr. Kraus Conservative management is recommended Paroxysmal atrial fibrillation, have a loop recorder implanted in September 2018. Has multiple short episodes of atrial fibrillation, Was hospitalized with misty ycardia subsequently flecainide was discontinued, had a loop monitor showing multiple episodes of atrial fibrillation. Transient bradycardia, currently asymptomatic, could be related to her chest pain, will continue monitoring and if she had any persistent bradycardia or sinus pauses we will consider a pacemaker. Right bundle branch block with left anterior fascicular block, reported transient episode of left bundle branch block, has underlying first-degree AV block, consideration for pacemaker if patient became symptomatic Hypertension, controlled, continue to monitor. Status post hospitalization in April 2019 at [facility] for possible seizure and she was started on Keppra. No follow-up was made, I made her an appointment with Dr. Екатерина Brewster at [facility] on August 11. Hyperlipidemia, Continue to monitor lipid Echocardiogram done in December 2020 showed normal left ventricular size with ejection fraction 45-50 percent, left atrial dilatation measuring 4.54 cm, moderate mitral regurgitation, mild aortic valve stenosis, moderate aortic regurgitation, estimated pulmonary artery pressure of 25mmHg. Mild bilateral carotid stenosis, last ultrasound was done in Feb 2020, continue to monitor. Depression, maintained on antidepressant Hypothyroidism managed by primary care physician History of stroke in the past, questionable carotid stenosis. Bronchial asthma. History of cholecystectomy, appendectomy, hysterectomy, tonsillectomy, tubal ligation, ovarian cyst removal. Okay for discharge and follow-up as an outpatient SARAH PAK MD Jun 10, 2021 11:56
--- NOTE | 2021-06-10 13:34 | Physical Therapy Daily Note ---
PT Daily Note-Current Subjective Patient agrees to PT. Son present Mental Status Patient Orientation: Person, Time, Situation Transfers SCALE: Activities may be completed with or without assistive devices. 3-Cujwehocfs-pqjxiuk completes the activity by him/herself with no assistance from a helper. 5-Set-up or Clean-up Assistance-helper sets up or cleans up; patient completes activity. [place] assists only prior to or following the activity. 4-Supervision or Touching Assistance-helper provides verbal cues and/or touching/steadying and/or contact guard assistance as patient completes activity. Assistance may be provided throughout the activity or intermittently. 3-Partial/Moderate Assistance-helper does LESS THAN HALF the effort. [place] lifts, holds or supports trunk or limbs, but provides less than half the effort. 2-Substantial/Maximal Assistance-helper does MORE THAN HALF the effort. [place] lifts or holds trunk or limbs and provides more than half the effort. 8-Fyuxhpobz-dzuubu does ALL the effort. Patient does none of the effort to complete the activity. Or, the assistance of 2 or more helpers is required for the patient to complete the activity. If activity was not attempted, code reason: 7-Patient Refused. 9-Not Applicable-not attempted and the patient did not perform the activity before the current illness, exacerbation or injury. 10-Not Attempted due to Environmental Limitations-(lack of equipment, weather restraints, etc.). 88-Not Attempted due to Medical Conditions or Safety Concerns. Sit to Stand (QC): 3 Weight Bearing Full Weight Bearing Full Weight Bearing Gait Training Distance: 200' Walk 10 feet (QC): 4 Walk 50 ft with 2 Turns(QC): 4 Walk 150 ft (QC): 4 Gait Assistive Device: FWW SBA for safety/very slow, steady gait sequence Assessment Patient remains up in recliner. Patient has been dismissed from hospital and is now self pay. Services are to continue per . PT Correction Goals Correction Goals PT Supervisor Air Conditioning Installer Goals Time Frame: Jun 18, 2021 Roll Left & Right (QC): 6 Sit to Lying (QC): 6 Lying-Sitting on Side/Bed(QC): 6 Sit to Stand (QC): 6 Chair/Nxj-qf-Sqtdt Xfer(QC): 6 Toilet Transfer (QC): 6 Walk 10 feet (QC): 6 Walk 50ft with 2 Turns (QC): 6 Walk 150 ft (QC): 6 PT Plan Treatment/Plan Treatment Plan: Continue Plan of Care Treatment Plan: Bed Mobility, Education, Functional Activity Bev, Functional Strength, Gait, Safety, Therapeutic Exercise, Transfers Treatment Duration: Jun 18, 2021 Frequency: 6 times per week Estimated Hrs Per Day: .25 hour per day Patient and/or Family Agrees t: Yes Time/GCodes Time In: 1315 Time Out: 1327 Total Billed Treatment Time: 12 Total Billed Treatment 1 visit FA 12 min PRICE DE LA ROSA PT Jun 10, 2021 13:34
--- NOTE | 2021-06-10 14:20 | Occupational Ther Daily Note ---
OT Current Status-Daily Note Subjective Pt dozing in recliner, woke to name. Son present in room. Pt agrees to therapy. Son states that pt's L inside of elbow is sore due to IV, that is out now. No rating of pain. Mental Status/Objective Patient Orientation: Person, Place, Time, Situation ADL-Treatment Therapy Code Descriptions/Definitions Functional [place] Measure: 0=Not Assessed/NA 4=Minimal Assistance 1=Total Assistance 5=Supervision or Setup 2=Maximal Assistance 6=Modified [place] 3=Moderate Assistance 7=Complete IndependenceSCALE: Activities may be completed with or without assistive devices. 8-Rxuuumktuy-slxqthg completes the activity by him/herself with no assistance from a helper. 5-Set-up or Clean-up Assistance-helper sets up or cleans up; patient completes activity. [place] assists only prior to or following the activity. 4-Supervision or Touching Assistance-helper provides verbal cues and/or touching/steadying and/or contact guard assistance as patient completes activity. Assistance may be provided throughout the activity or intermittently. 3-Partial/Moderate Assistance-helper does LESS THAN HALF the effort. [place] lifts, holds or supports trunk or limbs, but provides less than half the effort. 2-Substantial/Maximal Assistance-helper does MORE THAN HALF the effort. [place] lifts or holds trunk or limbs and provides more than half the effort. 8-Crmrzbpkk-cythlc does ALL the effort. Patient does none of the effort to complete the activity. Or, the assistance of 2 or more helpers is required for the patient to complete the activity. If activity was not attempted, code reason: 7-Patient Refused. 9-Not Applicable-not attempted and the patient did not perform the activity bef ore the current illness, exacerbation or injury. 10-Not Attempted due to Environmental Limitations-(lack of equipment, weather r estraints, etc.). 88-Not Attempted due to Medical Conditions or Safety Concerns. Other Treatment Pt's L elbow crease is swollen at IV site, IV taken out. Pt is overly protective of L UE and will not move entire L UE. Pt and son educated on if L UE does not move, swelling will not decrease and will become more sore and stiff. Pt given light resistance theraband and HEP for B UE strengthening though will not use due to pain. MALLOY educated pt on theraband exercises and how to modify. Pt able to complete shldr abd and horizontal abd with minimal pain. 1st set AAROM and 2nd set AROM both 10 reps. After session, pt sitting in recliner with call light/phone in reach. All needs met in room. Education OT Patient Education: Exercise program, Instructions to caregiver Teaching Recipient: Patient Teaching Methods: Demonstration, Handout, Discussion Response to Teaching: Verbalize Understanding, Return Demonstration, Reinforcement Needed OT Mainframe Applications Developer Goals Mainframe Applications Developer Goals Time Frame: Jun 17, 2021 Eating (QC): 6 Oral Hygiene (QC): 6 Toileting Hygiene (QC): 6 Shower/Bathe Self (QC): 4 Upper Body Dressing (QC): 5 Lower Body Dressing (QC): 4 On/Off Footwear (QC): 4 Additional Goals: 1-Demonstrate ADL Tasks, 2-Verbalize Understanding, 3- ImproveStrength/Bev 1=Demonstrate adherence to instructed precautions during ADL tasks. 2=Patient will verbalize/demonstrate understanding of assistive devices/modifications for ADL. 3=Patient will improve strength/tolerance for activity to enable patient to perform ADL's. OT Education/Plan Problem List/Assessment Assessment: Decreased Activ Tolerance, Decreased UE Strength, Impaired Self- Care Skills Discharge Recommendations Plan/Recommendations: Continue POC Treatment Plan/Plan of Care Patient would benefit from OT for education, treatment and training to promote independence in ADL's, mobility, safety and/or upper extremity function for ADL's. Plan of Care: ADL Retraining, Functional Mobility, UE Funct Exercise/Act Treatment Duration: Jun 17, 2021 Frequency: 3 times per week (3-5 times per week) Rehab Potential: Fair Time/GCodes Start Time: 13:55 Stop Time: 14:05 Total Time Billed (hr/min): 10 Billed Treatment Time 1 visit-EX 1 (10 min) PABLO GUEVARA Jun 10, 2021 14:20
[2021-06-10 16:49] VITALS: BP 97/58
== END 2021-06-10 16:51 | DRG 281 ==
LOC: CSD 16:48 → ICU 06-05 07:52 → CSD 06-06 06:16 → 4TH 06-08 09:24
PROVIDERS: ADMIT Internal Medicine; ATTEND Internal Medicine
DX: I25.110 Atherosclerotic heart disease of native coronary artery with unstable angina pectoris (principal); I21.A1 Myocardial infarction type 2; I45.2 Bifascicular block; F03.91 Unspecified dementia, unspecified severity, with behavioral disturbance; F05 Delirium due to known physiological condition; I44.4 Left anterior fascicular block; I10 Essential (primary) hypertension; Z66 Do not resuscitate; E78.2 Mixed hyperlipidemia; E78.00 Pure hypercholesterolemia, unspecified; E03.9 Hypothyroidism, unspecified; F32.A Depression, unspecified; H54.7 Unspecified visual loss; J44.9 Chronic obstructive pulmonary disease, unspecified; I48.0 Paroxysmal atrial fibrillation; G40.909 Epilepsy, unspecified, not intractable, without status epilepticus; I08.0 Rheumatic disorders of both mitral and aortic valves; I65.23 Occlusion and stenosis of bilateral carotid arteries; I25.2 Old myocardial infarction; Z79.01 Long term (current) use of anticoagulants; Z88.5 Allergy status to narcotic agent; Z88.0 Allergy status to penicillin
CPT/HCPCS: 36415; 71046; 78452; 80048; 80053; 80061; 81000; 83036; 83735; 84145; 84484; 85025; 93005; 93017; 93306; 94760; 94761

== ENCOUNTER → 2023-02-07 | Outpatient (CLI) | payer BC, MEDICARE ==
[~2023-02-07] MED LIST changes: +AMIT25TA9 PO; +AMLO-251 PO; +DONE10TA41 PO; +FLEC50TA PO; +ISOS30TA82 PO; -LOSA100T57 PO; +LOSA100T58 PO; +PANT40TA52 PO; +SERT-414 PO
== END ==
LOC: CARD 10:02
PROVIDERS: ATTEND Internal Medicine Cardiovascular Disease
DX: I11.9 Hypertensive heart disease without heart failure (principal); I08.0 Rheumatic disorders of both mitral and aortic valves; I25.10 Atherosclerotic heart disease of native coronary artery without angina pectoris
CPT/HCPCS: 93306